=== PATIENT | male | born 1960 | race Caucasian/White ===

== ENCOUNTER 2021-06-08 19:36 | Inpatient (IN) | payer OTHER, MEDICAID, SELFPAY ==
[2021-06-08] VITALS (18 sets, daily range): BP systolic 105–140; BP diastolic 70–95; PULSE 83–104; RESP 7–30; TEMP 31–36; O2SAT 90–99
--- NOTE | 2021-06-08 19:41 | DI.CT.S_ITS ---
PROCEDURE: CT HEAD/BRAIN WO CON INDICATIONS: altered mental status TECHNIQUE: Noncontrast 4.5 mm thick angled axial sections acquired from the foramen magnum to the vertex, with coronal and sagittal reformats. For radiation dose reduction, the following was used: automated exposure control, adjustment of mA and/or kV according to patient size. COMPARISON: None. FINDINGS: Image quality: Excellent. CSF spaces: Basal cisterns are patent. No extra-axial fluid collections. The ventricles are symmetric in size and shape. Brain: No intracranial bleeds or masses. There is cerebral volume loss for age, with resultant ventricular and sulcal prominence. There are periventricular and deep white matter chronic small vessel ischemic changes. There is intracranial internal carotid artery atherosclerosis. Skull and face: Calvarium and visualized facial bones appear intact, without suspicious lesions. Sinuses: Visualized sinuses and mastoids are clear. IMPRESSION: 1. No CT evidence of acute intracranial pathology. 2. Age-appropriate atrophy and mild white matter chronic small vessel ischemic changes. Dictated by: Isaac Crouch M.D. on 06/08/2021 at 20:38 Approved by: Isaac Crouch M.D. on 06/08/2021 at 20:39
--- NOTE | 2021-06-08 19:42 | DI.RAD.S_ITS ---
PROCEDURE: XR CHEST 1V INDICATIONS: dyspnea TECHNIQUE: One view of the chest was acquired. COMPARISON: [facility], , CHEST 2 VIEW, 03/31/2013, 20:00. FINDINGS: Surgical changes and devices: None. Lungs and pleura: There is suggestion of mild pulmonary edema and pulmonary vascular congestion. Underlying small scattered patchy infiltrates cannot be excluded. No pleural effusions or pneumothorax. Mediastinum: Mediastinal contours appear normal. Heart size is enlarged. Bones and chest wall: No suspicious bony lesions. Overlying soft tissues appear unremarkable. IMPRESSION: Cardiomegaly and pulmonary vascular congestion with pulmonary edema. Cannot rule out underlying scattered bilateral pulmonary infiltrates. No pleural effusion or pneumothorax. Dictated by: Isaac Crouch M.D. on 06/08/2021 at 20:49 Approved by: Isaac Crouch M.D. on 06/08/2021 at 20:49
[2021-06-08 20:09] LABS: Add Manual Diff / Slide Review NO; Basophils Absolute Auto 0 /uL (0-100); Basophils Percent Auto 0.1 % (0-2); Eosinophils Absolute Auto 0 /uL (0-450); Hematocrit 53.3 % (41-53); Lymphocytes Absolute Auto 300 /uL (1100-4500); Lymphocytes Percent Auto 2.8 % (25-40); Mean Corpuscular Hemoglobin 29.2 PG (26-34); Mean Corpuscular Volume 91.3 fL (80-100); Monocytes Absolute Auto 1800 /uL (0-900); Monocytes Percent Auto 15.3 % (3-14); Neutrophils Absolute Auto 9800 /uL (1500-7000); Neutrophils Percent Auto 81.8 % (50-75); Platelet Count 211 X10^3/uL (150-400); Red Blood Cell Count 5.84 X10^6/uL (4.5-5.9)
[2021-06-08] MEDS: SODIUM CHLORIDE 0.9% 1,000 ML 150 ML IV (20:13)
[2021-06-08] MEDS: methylPREDNISolone 125 MG/2 ML VIAL IV (20:14)
[2021-06-08 20:21] LABS: HCO3 VBG 36 mmol/L (23-28); Oxygen Saturation VBG 48 % (70-75); PCO2 VBG 113.3 mmHg (45-50); PO2 VBG 37 mmHg (35-45); Total CO2 VBG 40 mmol/L (24-29); pH VBG 7.11 (7.33-7.43)
[2021-06-08 20:28] LABS: Alanine Aminotransferase 646 IU/L (<50); Albumin 4.2 g/dL (3.5-5.0); Albumin Globulin Ratio 1.4 (1.0-2.8); Alkaline Phosphatase 84 U/L (38-126); Aspartate Aminotransferase 591 IU/L (17-59); BUN Creatinine Ratio 20.5 (6-22); Bilirubin Total 3.2 mg/dL (0.2-1.3); Blood Urea Nitrogen 45 mg/dL (9-20); Calcium 8.5 mg/dL (8.4-10.2); Carbon Dioxide 38 mmol/L (22-32); Chloride 90 mmol/L (98-107); Estimated Glomerular Filt Rate 30.7 mL/min (>60); Glucose 147 mg/dL (80-110); Lipase 136 U/L (23-300); Magnesium 2.5 mg/dL (1.6-2.3); Sodium 137 mmol/L (137-145); Total Protein 7.2 g/dL (6.3-8.2)
[2021-06-08 20:30] LABS: HEMOLYSIS < 15 (0-50); Potassium 6.2 mmol/L (3.4-5.1)
--- NOTE | 2021-06-08 20:31 | ED_ITS ---
HPI - General Adult General Chief complaint: Altered Mental Status Stated complaint: decreased LOC Time Seen by Provider: 06/08/21 19:40 Source: patient, family and EMS Mode of arrival: EMS History of Present Illness HPI narrative: Gentleman brought in by medics with respiratory distress. Apparently his significant other called medics because she was worried that his hands and his feet or purple. On arrival they found him to be significantly hypoxic with shallow breathing. He was given a mg of Narcan and seem to improve slightly. He will respond to direct questions but is clearly altered. There is no localizing neurologic symptoms otherwise. He and his girlfriend both deny alcohol use or recreational drugs. It is unclear how long he has been having respiratory issues. Related Data Home Medications Medication Instructions Recorded Confirmed No Known Home Medications 11/29/18 11/29/18 Allergies Allergy/AdvReac Type Severity Reaction Status Date / Time No Known Allergies Allergy Uncoded 11/29/18 13:42 Review of Systems Review of Systems ROS Unobtainable: Unobtainable due to medical condition Patient History Medical History Chicken pox (~1964) Fractures (~1993) Hearing loss Measles (~1965) Mumps (~1967) Vision disorder Surgical History Anesthesia Broken nose (~1981) History of hernia surgery (~1964) Social History Smoking Status: Current every day smoker Tobacco: How many years used: 50 quit status: not considering quitting second hand exposure: No alcohol intake: current (once or twice a year, maybe) substance use type: marijuana (once in awhile) Smoking Status: Current every day smoker Exam Narrative Exam Narrative: General: Significantly altered mental status. Can answer questions directly but requires deep sternal rub to do so. He is aware that he is in hospital HEENT: Moist mucous membranes, normal sclera with reactive pupils, 3 mm. Neck: supple, unable to evaluate JVD due to body habitus and coto Respiratory: Lungs with shallow air movement, scattered wheeze, basilar c rackles and rhonchi with popping in the right posterior lung field Cardiac: Tachycardic but otherwise Regular rate and rhythm no murmurs no bruits Abdomen: Soft, no pain behaviors elicited with deep palpation, good bowel tones, no flank pain Skin: Overall poorly perfused. Hands are chronically swollen as can be seen with chronic IV drug use and methamphetamine use. Poor overall perfusion Neurologic: Moving all extremities, can answer some specific direct questions but clearly altered Extremities: No trauma, 4+ lower extremity edema bilaterally, feet are cool to the touch Psych: Altered Initial Vital Signs Initial Vital Signs: Vital Signs Temperature 96.8 F L 06/08/21 19:40 Pulse Rate 104 H 06/08/21 19:40 Respiratory Rate 21 06/08/21 19:40 Blood Pressure 133/79 06/08/21 19:40 Pulse Oximetry 94 06/08/21 19:40 Course Course Course Narrative: 61-year-old gentleman with minimal medical history brought in with altered mental status and decreased respiratory effort. Medics noted a significant response with the initial mg of Narcan. Initial venous blood gas reveals a pH of 7.1 and CO2 of 113. The hypercarbia certainly explains the altered mental status. On clinical exam strong suspicion for narcotic as well as methamphetamine use. Possibility of significant congestive heart failure with concern for cardiomyopathy possibly methamphetamine induced. No evidence o f acute coronary syndrome or STEMI on initial presentation. Possibility of acute on chronic narcotic overdose with hypoventilation and hypercarbic respiratory failure. Blood pressure initially is stable and he is minimally tachycardic. He is afebrile and there is no clinical evidence of infection at this time. I do not think that this is sepsis however that clearly remains in the differential. Most likely explanation is congestive heart failure with hypercarbic respiratory failure and possibility of narcotic overdose to exacerbate all of his symptoms. He started on BiPAP, labs are continued. At this point without signs or symptoms of infection antibiotics are not started. If volume overload seems to beef very clear and will not start IV fluids. He is oxygenating well on 50% O2 on BiPAP at this time. After an hour on BiPAP his CO2 is come down to 84 in his pH is increased to 7. 24. He received 2 mg of Haldol to help with agitation and we replaced his small mask with full face mask and he at this point is tolerating the BiPAP much better. Repeat chemistries showed a potassium increasing from 6.2-6.5. Initial interventions had been Lasix, insulin and glucose. An additional 80 mg of Lasix as well as an amp of bicarb were given. With both of these potassium levels there are no EKG changes Regarding renal function, with BiPAP in place and diuresis started a creatinine is already trending down from 2.19 to 1.97. Lactic acid similar it is trending down with diuresis ProBNP is elevated and he clearly is in significant congestive heart failure AST and ALT are trending up however bilirubin level is trending down. Phone calls are made to [facility], probably [place] and [facility]. We have talked with coordinating transfer center for [facility] and no ICU beds are going to be available this evening. Talked with Dr. Burk and he will be admitted to our hospital for continued care. 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 No evidence of acute coronary syndrome at this time He is tolerating BiPAP and CO2 is improving Possible accidental heroin overdose contributing to hypoventilation and complications of all the above He is in critical condition and will be transferred to the ICU Orders Ordered: ED Orders 06/08/21 19:41 CT head/brain wo con Stat 06/08/21 19:42 XR chest 1V Stat EKG-12 Lead Stat 06/08/21 20:00 COVID19 - ADMIT (CODING QUALITY ANALYST swab/PCR) Stat Complete Blood Count AUTO DIFF Stat Comprehensive Metabolic Panel Stat D Dimer Stat Lactate (Lactic Acid) Stat Lipase Stat Magnesium Stat NT-proBNP (BNP-Adult 18+) Stat Thyroid Stimulating Hormone Stat Troponin I Stat 06/08/21 20:02 Venous Blood Gas Stat 06/08/21 20:11 BiPAP Ventilatory Support RT PROTOCOL 06/08/21 20:56 Blood Culture Stat 06/08/21 21:03 Ictotest Urine Stat Urinalysis and Microscopic Stat Urine Drug Screen, Rapid Stat 06/08/21 22:00 Comprehensive Metabolic Panel Stat Venous Blood Gas Stat Sodium Chloride (Normal Saline 0.9%) 1,000 mls @ 150 mls/hr IV CONT RYLAND Last Infusion: 06/08/21 21:07 Dose: 21 mls/hr Documented by: Admin: 06/08/21 20:13 Dose: 150 mls/hr Documented by: YOLA Discontinued Medications Dextrose (Dextrose 50 % In Water 25 Gm/50 Ml Syringe) 25 gm IV NOW ONE Stop: 06/08/21 20:49 Last Admin: 06/08/21 20:56 Dose: 25 gm Documented by: YOLA Furosemide (Furosemide 100 Mg/10 Ml Vial) 80 mg IV NOW ONE Stop: 06/08/21 20:49 Last Admin: 06/08/21 20:54 Dose: 80 mg Documented by: YOLA Furosemide (Furosemide 100 Mg/10 Ml Vial) 80 mg IV NOW ONE Stop: 06/08/21 22:37 Last Admin: 06/08/21 22:39 Dose: 80 mg Documented by: YOLA Haloperidol (Haloperidol 5 Mg/Ml Vial) 2 mg IV NOW ONE Stop: 06/08/21 22:12 Last Admin: 06/08/21 22:13 Dose: 2 mg Documented by: YOLA Insulin Human Regular (Insulin Regular 100 Unit/Ml 3 Ml Vial) 10 unit IV NOW ONE Stop: 06/08/21 20:49 Last Admin: 06/08/21 20:59 Dose: 10 unit Documented by: YOLA Cosigned by: HUMAIRA Methylprednisolone (Methylprednisolone 125 Mg/2 Ml Vial) 125 mg IV NOW ONE Stop: 06/08/21 19:58 Last Admin: 06/08/21 20:14 Dose: 125 mg Documented by: YOLA Naloxone HCl (Naloxone 1 Mg/Ml Syringe) 1 mg IV NOW ONE Stop: 06/08/21 20:41 Last Admin: 06/08/21 20:41 Dose: 1 mg Documented by: YOLA Nitroglycerin (Nitroglycerin Oint 1 Inch/Gm Oint...G.) 0.5 inch TOP NOW ONE Stop: 06/08/21 20:54 Last Admin: 06/08/21 21:11 Dose: 0.5 inch Documented by: YOLA Sodium Bicarbonate (Sodium Bicarb 8.4% Syringe) 50 meq IV NOW ONE Stop: 06/08/21 22:39 Last Admin: 06/08/21 22:47 Dose: 50 meq Documented by: YOLA Vital Signs Vital signs: Vital Signs - 8 hr 06/08/21 19:40 06/08/21 20:01 06/08/21 20:06 Temperature 96.8 F L Pulse Rate 104 H 104 H 104 H Respiratory Rate 21 7 L 21 Blood Pressure 133/79 133/79 Pulse Oximetry 94 93 90 L 06/08/21 20:30 06/08/21 20:52 06/08/21 21:00 Temperature Pulse Rate 103 H 96 H 92 H Respiratory Rate 13 23 26 H Blood Pressure 110/77 114/70 Pulse Oximetry 95 94 92 06/08/21 21:11 06/08/21 21:30 06/08/21 21:31 Temperature Pulse Rate 89 88 Respiratory Rate 28 H 29 H Blood Pressure 114/70 140/89 Pulse Oximetry 99 99 06/08/21 21:57 06/08/21 22:00 06/08/21 22:30 Temperature Pulse Rate 88 86 84 Respiratory Rate 26 H 26 H 29 H Blood Pressure 127/84 136/85 Pulse Oximetry 91 91 94 06/08/21 22:31 06/08/21 22:39 Temperature Pulse Rate 85 Respiratory Rate 24 Blood Pressure 115/95 H 115/95 H Pulse Oximetry 94 Medical Decision Making Lab Data Result diagrams: 06/08/21 20:00 06/08/21 22:00 Labs: Lab Results 06/08/21 06/08/21 06/08/21 Range/Units 20:00 20:00 20:00 WBC 12.0 H (4.5-11.0) X10^3/uL RBC 5.84 (4.5-5.9) X10^6/uL Hgb 17.0 (13.5-17.5) g/dL Hct 53.3 H (41-53) % MCV 91.3 (80-100) fL MCH 29.2 (26-34) PG MCHC 32.0 (30-36) % RDW 15.0 H (11.6-14.8) % Plt Count 211 (150-400) X10^3/uL Neut % (Auto) 81.8 H (50-75) % Lymph % (Auto) 2.8 L (25-40) % [place] % (Auto) 15.3 H (3-14) % Eos % (Auto) 0.0 L (2-4) % Baso % (Auto) 0.1 (0-2) % Neut # (Auto) 9800 H (8325-6951) /uL Lymph # (Auto) 300 L (9602-5761) /uL [place] # (Auto) 1800 H (0-900) /uL Eos # (Auto) 0 (0-450) /uL Baso # (Auto) 0 (0-100) /uL D-Dimer 918 H (<230) ng/mL VBG pH (7.33-7.43) VBG pCO2 (45-50) mmHg VBG pO2 (35-45) mmHg VBG HCO3 (23-28) mmol/L VBG Total CO2 (24-29) mmol/L VBG O2 Saturation (70-75) % VBG Base Excess (0-4) mmol/L Sodium 137 (137-145) mmol/L Potassium 6.2 H (3.4-5.1) mmol/L Chloride 90 L (98-107) mmol/L Carbon Dioxide 38 H (22-32) mmol/L BUN 45 H (9-20) mg/dL Creatinine 2.19 H (0.66-1.25) mg/dL Estimated GFR 30.7 L (>60) mL/min BUN/Creatinine Ratio 20.5 (6-22) Glucose 147 H (80-110) mg/dL Lactate (0.7-2.1) mmol/L Calcium 8.5 (8.4-10.2) mg/dL Magnesium 2.5 H (1.6-2.3) mg/dL Total Bilirubin 3.2 H (0.2-1.3) mg/dL AST 591 H (17-59) IU/L ALT 646 H (<50) IU/L Alkaline Phosphatase 84 (38-126) U/L Troponin I 0.419 H* (0.01-0.034) ng/mL NT-Pro-B Natriuret Pep 6250 H (<125) pg/mL Total Protein 7.2 (6.3-8.2) g/dL Albumin 4.2 (3.5-5.0) g/dL Globulin 3.0 (1.7-4.1) g/dL Albumin/Globulin Ratio 1.4 (1.0-2.8) Lipase 136 (23-300) U/L TSH (0.47-4.68) uIU/mL Urine Color Urine Appearance Urine pH (4.5-8.0) Ur Specific [place] (1.000-1.035) Urine Protein (Negative) Urine Glucose (UA) (Negative) g/dL Urine Ketones (NEGATIVE) Urine Occult Blood (Negative) Urine Nitrate (Negative) Urine Bilirubin (NEGATIVE) Ur Bilirubin Confirm (Negative) Urine Urobilinogen (0.2) E.U./dL Ur Leukocyte Esterase (NEGATIVE) Urine RBC (0-5/HPF) Urine WBC (0-5/HPF) Ur Squamous Epith Cells (0-5/HPF) Ur Transition Epith Cell (0-5/HPF) Urine Bacteria (None) Hyaline Casts (None) Urine Mucus (Negative) Ur Culture Indicated? U Opiates 300ng/mL cut (Negative) Ur Oxycodone Screen (Negative) Urine Methadone Screen (Negative) Ur Barbiturates Screen (Negative) U Tricyclic Antidepress (Negative) Ur Phencyclidine Scrn (Negative) Ur Amphetamines Screen (Negative) U Methamphetamines Scrn (Negative) Ur MDMA Scrn (Ecstasy) (Negative) U Benzodiazepines Scrn (Negative) Urine Cocaine Screen (Negative) U Marijuana (THC) Screen (Negative) SARS-CoV-2 (PCR) (Negative) 06/08/21 06/08/21 06/08/21 Range/Units 20:00 20:00 20:00 WBC (4.5-11.0) X10^3/uL RBC (4.5-5.9) X10^6/uL Hgb (13.5-17.5) g/dL Hct (41-53) % MCV (80-100) fL MCH (26-34) PG MCHC (30-36) % RDW (11.6-14.8) % Plt Count (150-400) X10^3/uL Neut % (Auto) (50-75) % Lymph % (Auto) (25-40) % [place] % (Auto) (3-14) % Eos % (Auto) (2-4) % Baso % (Auto) (0-2) % Neut # (Auto) (1284-3823) /uL Lymph # (Auto) (9542-6310) /uL [place] # (Auto) (0-900) /uL Eos # (Auto) (0-450) /uL Baso # (Auto) (0-100) /uL D-Dimer (<230) ng/mL VBG pH (7.33-7.43) VBG pCO2 (45-50) mmHg VBG pO2 (35-45) mmHg VBG HCO3 (23-28) mmol/L VBG Total CO2 (24-29) mmol/L VBG O2 Saturation (70-75) % VBG Base Excess (0-4) mmol/L Sodium (137-145) mmol/L Potassium (3.4-5.1) mmol/L Chloride (98-107) mmol/L Carbon Dioxide (22-32) mmol/L BUN (9-20) mg/dL Creatinine (0.66-1.25) mg/dL Estimated GFR (>60) mL/min BUN/Creatinine Ratio (6-22) Glucose (80-110) mg/dL Lactate 4.7 H* (0.7-2.1) mmol/L Calcium (8.4-10.2) mg/dL Magnesium (1.6-2.3) mg/dL Total Bilirubin (0.2-1.3) mg/dL AST (17-59) IU/L ALT (<50) IU/L Alkaline Phosphatase (38-126) U/L Troponin I (0.01-0.034) ng/mL NT-Pro-B Natriuret Pep (<125) pg/mL Total Protein (6.3-8.2) g/dL Albumin (3.5-5.0) g/dL Globulin (1.7-4.1) g/dL Albumin/Globulin Ratio (1.0-2.8) Lipase (23-300) U/L TSH 1.70 (0.47-4.68) uIU/mL Urine Color Urine Appearance Urine pH (4.5-8.0) Ur Specific [place] (1.000-1.035) Urine Protein (Negative) Urine Glucose (UA) (Negative) g/dL Urine Ketones (NEGATIVE) Urine Occult Blood (Negative) Urine Nitrate (Negative) Urine Bilirubin (NEGATIVE) Ur Bilirubin Confirm (Negative) Urine Urobilinogen (0.2) E.U./dL Ur Leukocyte Esterase (NEGATIVE) Urine RBC (0-5/HPF) Urine WBC (0-5/HPF) Ur Squamous Epith Cells (0-5/HPF) Ur Transition Epith Cell (0-5/HPF) Urine Bacteria (None) Hyaline Casts (None) Urine Mucus (Negative) Ur Culture Indicated? U Opiates 300ng/mL cut (Negative) Ur Oxycodone Screen (Negative) Urine Methadone Screen (Negative) Ur Barbiturates Screen (Negative) U Tricyclic Antidepress (Negative) Ur Phencyclidine Scrn (Negative) Ur Amphetamines Screen (Negative) U Methamphetamines Scrn (Negative) Ur MDMA Scrn (Ecstasy) (Negative) U Benzodiazepines Scrn (Negative) Urine Cocaine Screen (Negative) U Marijuana (THC) Screen (Negative) SARS-CoV-2 (PCR) Negative (Negative) 06/08/21 06/08/21 06/08/21 Range/Units 20:02 21:03 21:03 WBC (4.5-11.0) X10^3/uL RBC (4.5-5.9) X10^6/uL Hgb (13.5-17.5) g/dL Hct (41-53) % MCV (80-100) fL MCH (26-34) PG MCHC (30-36) % RDW (11.6-14.8) % Plt Count (150-400) X10^3/uL Neut % (Auto) (50-75) % Lymph % (Auto) (25-40) % [place] % (Auto) (3-14) % Eos % (Auto) (2-4) % Baso % (Auto) (0-2) % Neut # (Auto) (4649-0246) /uL Lymph # (Auto) (0531-4956) /uL [place] # (Auto) (0-900) /uL Eos # (Auto) (0-450) /uL Baso # (Auto) (0-100) /uL D-Dimer (<230) ng/mL VBG pH 7.11 L* (7.33-7.43) VBG pCO2 113.3 H (45-50) mmHg VBG pO2 37 (35-45) mmHg VBG HCO3 36 H (23-28) mmol/L VBG Total CO2 40 H (24-29) mmol/L VBG O2 Saturation 48 L (70-75) % VBG Base Excess 7.0 H (0-4) mmol/L Sodium (137-145) mmol/L Potassium (3.4-5.1) mmol/L Chloride (98-107) mmol/L Carbon Dioxide (22-32) mmol/L BUN (9-20) mg/dL Creatinine (0.66-1.25) mg/dL Estimated GFR (>60) mL/min BUN/Creatinine Ratio (6-22) Glucose (80-110) mg/dL Lactate (0.7-2.1) mmol/L Calcium (8.4-10.2) mg/dL Magnesium (1.6-2.3) mg/dL Total Bilirubin (0.2-1.3) mg/dL AST (17-59) IU/L ALT (<50) IU/L Alkaline Phosphatase (38-126) U/L Troponin I (0.01-0.034) ng/mL NT-Pro-B Natriuret Pep (<125) pg/mL Total Protein (6.3-8.2) g/dL Albumin (3.5-5.0) g/dL Globulin (1.7-4.1) g/dL Albumin/Globulin Ratio (1.0-2.8) Lipase (23-300) U/L TSH (0.47-4.68) uIU/mL Urine Color Yellow Urine Appearance Clear Urine pH 5.0 (4.5-8.0) Ur Specific [place] >=1.030 H (1.000-1.035) Urine Protein 2+ H (Negative) Urine Glucose (UA) Trace H (Negative) g/dL Urine Ketones Trace H (NEGATIVE) Urine Occult Blood Trace-lysed (Negative) Urine Nitrate Negative (Negative) Urine Bilirubin 1+ H (NEGATIVE) Ur Bilirubin Confirm Negative (Negative) Urine Urobilinogen 1.0 (0.2) E.U./dL Ur Leukocyte Esterase Negative (NEGATIVE) Urine RBC 0-1/hpf (0-5/HPF) Urine WBC 0-1/hpf (0-5/HPF) Ur Squamous Epith Cells 0-1 /hpf (0-5/HPF) Ur Transition Epith Cell 0-1/hpf (0-5/HPF) Urine Bacteria Occasional (0-1) (None) Hyaline Casts 30-100/lpf (None) Urine Mucus 1+ H (Negative) Ur Culture Indicated? Cult not indicated U Opiates 300ng/mL cut Positive H (Negative) Ur Oxycodone Screen Negative (Negative) Urine Methadone Screen Negative (Negative) Ur Barbiturates Screen Negative (Negative) U Tricyclic Antidepress Negative (Negative) Ur Phencyclidine Scrn Negative (Negative) Ur Amphetamines Screen Negative (Negative) U Methamphetamines Scrn Positive H (Negative) Ur MDMA Scrn (Ecstasy) Negative (Negative) U Benzodiazepines Scrn Negative (Negative) Urine Cocaine Screen Negative (Negative) U Marijuana (THC) Screen Negative (Negative) SARS-CoV-2 (PCR) (Negative) 06/08/21 06/08/21 06/08/21 Range/Units 22:00 22:00 22:20 WBC (4.5-11.0) X10^3/uL RBC (4.5-5.9) X10^6/uL Hgb (13.5-17.5) g/dL Hct (41-53) % MCV (80-100) fL MCH (26-34) PG MCHC (30-36) % RDW (11.6-14.8) % Plt Count (150-400) X10^3/uL Neut % (Auto) (50-75) % Lymph % (Auto) (25-40) % [place] % (Auto) (3-14) % Eos % (Auto) (2-4) % Baso % (Auto) (0-2) % Neut # (Auto) (4678-5982) /uL Lymph # (Auto) (2939-0536) /uL [place] # (Auto) (0-900) /uL Eos # (Auto) (0-450) /uL Baso # (Auto) (0-100) /uL D-Dimer (<230) ng/mL VBG pH 7.24 L (7.33-7.43) VBG pCO2 84.2 H (45-50) mmHg VBG pO2 38 (35-45) mmHg VBG HCO3 36 H (23-28) mmol/L VBG Total CO2 39 H (24-29) mmol/L VBG O2 Saturation 60 L (70-75) % VBG Base Excess 9.0 H (0-4) mmol/L Sodium 135 L (137-145) mmol/L Potassium 6.5 H* (3.4-5.1) mmol/L Chloride 92 L (98-107) mmol/L Carbon Dioxide 37 H (22-32) mmol/L BUN 47 H (9-20) mg/dL Creatinine 1.97 H (0.66-1.25) mg/dL Estimated GFR 34.7 L (>60) mL/min BUN/Creatinine Ratio 23.9 H (6-22) Glucose 205 H (80-110) mg/dL Lactate 4.0 H (0.7-2.1) mmol/L Calcium 8.0 L (8.4-10.2) mg/dL Magnesium (1.6-2.3) mg/dL Total Bilirubin 2.4 H (0.2-1.3) mg/dL AST 1344 H (17-59) IU/L ALT 1411 H (<50) IU/L Alkaline Phosphatase 65 (38-126) U/L Troponin I (0.01-0.034) ng/mL NT-Pro-B Natriuret Pep (<125) pg/mL Total Protein 6.3 (6.3-8.2) g/dL Albumin 3.5 (3.5-5.0) g/dL Globulin 2.8 (1.7-4.1) g/dL Albumin/Globulin Ratio 1.3 (1.0-2.8) Lipase (23-300) U/L TSH (0.47-4.68) uIU/mL Urine Color Urine Appearance Urine pH (4.5-8.0) Ur Specific [place] (1.000-1.035) Urine Protein (Negative) Urine Glucose (UA) (Negative) g/dL Urine Ketones (NEGATIVE) Urine Occult Blood (Negative) Urine Nitrate (Negative) Urine Bilirubin (NEGATIVE) Ur Bilirubin Confirm (Negative) Urine Urobilinogen (0.2) E.U./dL Ur Leukocyte Esterase (NEGATIVE) Urine RBC (0-5/HPF) Urine WBC (0-5/HPF) Ur Squamous Epith Cells (0-5/HPF) Ur Transition Epith Cell (0-5/HPF) Urine Bacteria (None) Hyaline Casts (None) Urine Mucus (Negative) Ur Culture Indicated? U Opiates 300ng/mL cut (Negative) Ur Oxycodone Screen (Negative) Urine Methadone Screen (Negative) Ur Barbiturates Screen (Negative) U Tricyclic Antidepress (Negative) Ur Phencyclidine Scrn (Negative) Ur Amphetamines Screen (Negative) U Methamphetamines Scrn (Negative) Ur MDMA Scrn (Ecstasy) (Negative) U Benzodiazepines Scrn (Negative) Urine Cocaine Screen (Negative) U Marijuana (THC) Screen (Negative) SARS-CoV-2 (PCR) (Negative) Imaging Data CT scan - head: Radiologist's Impression: FINDINGS: Image quality: Excellent. CSF spaces: Basal cisterns are patent. No extra-axial fluid collections. The ventricles are symmetric in size and shape. Brain: No intracranial bleeds or masses. There is cerebral volume loss for age, with resultant ventricular and sulcal prominence. There are periventricular and deep white matter chronic small vessel ischemic changes. There is intracranial internal carotid artery atherosclerosis. Skull and face: Calvarium and visualized facial bones appear intact, without suspicious lesions. Sinuses: Visualized sinuses and mastoids are clear. IMPRESSION: 1. No CT evidence of acute intracranial pathology. 2. Age-appropriate atrophy and mild white matter chronic small vessel ischemic changes. Dictated by: Isaac Crouch M.D. on 06/08/2021 at 20:38 Chest x-ray: Radiologist's Impression: FINDINGS: Surgical changes and devices: None. Lungs and pleura: There is suggestion of mild pulmonary edema and pulmonary vascular congestion. Underlying small scattered patchy infiltrates cannot be excluded. No pleural effusions or pneumothorax. Mediastinum: Mediastinal contours appear normal. Heart size is enlarged. Bones and chest wall: No suspicious bony lesions. Overlying soft tissues appear unremarkable. IMPRESSION: Cardiomegaly and pulmonary vascular congestion with pulmonary edema. Cannot rule out underlying scattered bilateral pulmonary infiltrates. No pleural effusion or pneumothorax. Dictated by: Isaac Crouch M.D. on 06/08/2021 at 20:49 ECG Data Interpretation: Sinus tach Rate of 101 normal intervals, significant rightward axis No acute ischemic changes MDM Narrative Medical decision making narrative: Labs are returning of note is a lactate level at 4.7 that again I think is from Cardiac hypoperfusion and respiratory insufficiency rather than infection. Acute kidney injury with creatinine at 2.19 and potassium elevated at 6.2 without peaked T-waves or widened QRS. Will treat the potassium with glucose and insulin. Will also add Lasix for the presumed significant congestive heart failure Elevated total bili AST and ALT likely secondary to passive liver congestion from severe congestive heart failure. Alkaline phosphatase is 84. Do not s uspect acute cholecystitis or common bile duct stone or other obstructive etiology at this time Elevated troponin at this point with his acute kidney injury, concern for cardiomyopathy and no evidence of ST T wave changes on his EKG, I think the probability of acute coronary syndrome is less likely. Will re-evaluate after diuresis and an hour of BiPAP. Will place topical nitrates at this time. 8:50pm he did have a slight response after another mg of Narcan, was able to speak in full sentences and assist with repositioning in bed. Critical Care Time Critical Care Time Critical Care Time: Yes Total Critical Care Time: 47 Attestation: Critical care time is separate from other billable procedures. There is a high probability of a significant, sudden or life-threatening deterioration that requires my full and direct attention, intervention and personal management. This critical care time includes consultation with family and other consulting doctors, review of records, and interpretation of data from labs, EKGs and imaging as well as managements of acute neurologic changes, respiratory failure, cardiac failure, renal failure, liver failure and severe congestive heart disease. Discharge Plan Departure Prescriptions: No Action No Known Home Medications RF: 0 Referrals: Vi Esquivel ARNP [Primary Care Provider] - Admit Date/Time: 06/08/21 23:33
[2021-06-08 20:34] LABS: Lactate (Lactic Acid) 4.7 mmol/L (0.7-2.1)
[2021-06-08 20:41] LABS: NT-proBNP (BNP-Adult 18+) 6250 pg/mL (<125)
[2021-06-08] MEDS: NALOXONE 1 MG/ML SYRINGE IV (20:41)
[2021-06-08 20:45] LABS: D Dimer 918 ng/mL (<230); Troponin I 0.419 ng/mL (0.01-0.034)
[2021-06-08] MEDS: FUROSEMIDE 100 MG/10 ML VIAL 80 MG IV ×2 (20:54→22:39)
[2021-06-08] MEDS: DEXTROSE 50 % IN WATER 25 GM/50 ML SYRINGE IV (20:56)
[2021-06-08] MEDS: INSULIN REGULAR 100 UNIT/ML 3 ML VIAL 10 UNIT IV (20:59)
[2021-06-08] MEDS: NITROGLYCERIN OINT 1 INCH/GM OINT...G. 0.5 INCH TOP (21:11)
[2021-06-08 21:14] LABS: Appearance Urine UA CLEAR; Bilirubin Urine UA 1+ (NEGATIVE); Color Urine UA YELLOW; Glucose Urine UA TRACE g/dL (Negative); Ketones Urine UA TRACE (NEGATIVE); Leukocyte Esterase Urine UA NEGATIVE (NEGATIVE); Nitrite Urine UA NEGATIVE (Negative); Occult Blood Urine UA TRACE-LYSED (Negative); Protein Urine UA 2+ (Negative); Specific Gravity Urine UA >=1.030 (1.000-1.035)
[2021-06-08 21:25] LABS: Bacteria Urine Occasional (0-1); Culture Indicated Urine Cult Not Indicated; Hyaline Casts Urine 30-100/LPF; Ictotest Urine Negative (Negative); RBC Urine 0-1/HPF (0-5/HPF); Squamous Epithelial Cell Urine 0-1 /HPF (0-5/HPF); Transitional Epi Cells Urine 0-1/HPF (0-5/HPF); WBC Urine 0-1/HPF (0-5/HPF)
[2021-06-08 21:26] LABS: Mucus Urine 1+ (Negative)
[2021-06-08 21:37] LABS: UR Morphine/Opiate cutoff 300 Positive (Negative); Ur Creatinine 200 (Normal); Urine Amphetamines Negative (Negative); Urine Barbiturates Negative (Negative); Urine Benzodiazepines Negative (Negative); Urine Cocaine Negative (Negative); Urine MDMA Negative (Negative); Urine Methadone Negative (Negative); Urine Methamphetamines Positive (Negative); Urine Oxycodone Negative (Negative); Urine Phencyclidine Negative (Negative); Urine Tetrahydrocannabinol Negative (Negative); Urine Tricyclic Antidepressant Negative (Negative); Urine pH 5 (Normal)
[2021-06-08 22:05] LABS: Reflexed Lactate in 2 Hours Y
[2021-06-08] MEDS: HALOPERIDOL 5 MG/ML VIAL 2 MG IV (22:13)
[2021-06-08 22:17] LABS: Albumin 3.5 g/dL (3.5-5.0); Albumin Globulin Ratio 1.3 (1.0-2.8); Alkaline Phosphatase 65 U/L (38-126); BUN Creatinine Ratio 23.9 (6-22); Bilirubin Total 2.4 mg/dL (0.2-1.3); Blood Urea Nitrogen 47 mg/dL (9-20); Carbon Dioxide 37 mmol/L (22-32); Chloride 92 mmol/L (98-107); Estimated Glomerular Filt Rate 34.7 mL/min (>60); Globulin 2.8 g/dL (1.7-4.1); Glucose 205 mg/dL (80-110); HEMOLYSIS 47 (0-50); Sodium 135 mmol/L (137-145); Total Protein 6.3 g/dL (6.3-8.2)
[2021-06-08 22:22] LABS: HCO3 VBG 36 mmol/L (23-28); PCO2 VBG 84.2 mmHg (45-50); PO2 VBG 38 mmHg (35-45); Total CO2 VBG 39 mmol/L (24-29)
[2021-06-08 22:23] LABS: Oxygen Saturation VBG 60 % (70-75); Potassium 6.5 mmol/L (3.4-5.1); pH VBG 7.24 (7.33-7.43)
[2021-06-08 22:36] LABS: COVID19 - ADMIT (NP swab/PCR) Negative (Negative)
[2021-06-08 22:46] LABS: Alanine Aminotransferase 1411 IU/L (<50); Aspartate Aminotransferase 1344 IU/L (17-59)
[2021-06-08] MEDS: SODIUM BICARB 8.4% SYRINGE 50 MEQ IV (22:47)
[2021-06-09] VITALS (98 sets, daily range): BP systolic 85–127; BP diastolic 55–94; PULSE 62–120; RESP 14–36; TEMP 30.8–37.2; O2SAT 88–97; BMI 34.2
--- NOTE | 2021-06-09 | DI.ECHO.S_ITS ---
[facility] +---------+ : : [address] : : : : [id number] : : : : Phone: [phone]+ Echocardiogram Report + + :Name: DIRK MOORE Study Date: 06/09/2021 Height: 74 in : :[facility] ReadingLocation: : : Gender: Male : :: 1960 Age: 61 yrs BP: 94/64 mmHg: :Reason For Study: EVALUATE LV FUNCTION : :Ordering Physician: JONATHAN, : :YASHIRA Performed By: Geno Azul : :Referring: YASHIRA CASTILLO : + + Interpretation Summary Images taken out of protocol due to patient detox and becoming increasingly agitated by scanning. Definity was not used due to patient increasingly becoming agitated by scanning. The left ventricle is normal in size. There is mild concentric left ventricular hypertrophy. Left ventricular ejection fraction is estimated to be 25 +/- 5%. There is severe global hypokinesis of the left ventricle. Mid to distal posterior lateral wall appears to be akinetic. The interventricular septum is flattened, consistent with a right ventricular pressure overload condition. The right ventricle is mildly dilated. Right ventricular systolic function is mild to moderately reduced. There is mild tricuspid regurgitation. Pulmonary artery pressures cannot be estimated because of the lack of a measurable TR jet velocity. The aortic root is moderately dilated. The ascending aorta is mild-moderately enlarged. Patient on bi-pap, IVC dilated without collapse. In short axis, aortic valve opens well. Cannot rule out bicuspid aortic valve. Procedure: A two-dimensional transthoracic echocardiogram with color flow and Doppler was performed. The study quality was technically difficult. There is no prior echocardiogram noted for this patient. The heart rate ranged between 61-81 bpm during the study. The patient had occasional PVCs during the exam. The patient was in normal sinus rhythm during the exam. The patient had a bundle branch block rhythm during the exam. Left Ventricle: The estimated left ventricular end diastolic volume is 122 ml. The left ventricle is normal in size. There is mild concentric left ventricular hypertrophy. There is no thrombus. A false chord is noted (normal variant). Left ventricular ejection fraction is estimated to be 25 +/- 5%. There is severe global hypokinesis of the left ventricle. Mid to distal posterior lateral wall appears to be akinetic. The interventricular septum is flattened, consistent with a right ventricular pressure overload condition. Diastolic parameters suggest a relaxation abnormality of the left ventricle, consistent with probable normal filling pressures. Right Ventricle: The right ventricle is mildly dilated. Right ventricular systolic function is mild to moderately reduced. Atria: The left atrium is moderately dilated. The right atrium is moderately dilated. There is no Doppler evidence for an interatrial shunt. Mitral Valve: The mitral valve leaflets appear mildly thickened, but open well. There is mild mitral annular calcification. There is mild mitral regurgitation. Aortic Valve: The aortic valve opens well. In short axis, aortic valve opens well. Cannot rule out bicuspid aortic valve. There is no aortic valve stenosis. No aortic regurgitation is present. Tricuspid Valve: The tricuspid valve is not well visualized, but is grossly normal. There is mild tricuspid regurgitation. Pulmonary artery pressures cannot be estimated because of the lack of a measurable TR jet velocity. Pulmonic Valve: The pulmonic valve is not well visualized. There is no pulmonic valvular regurgitation. Great Vessels: The aortic root is moderately dilated. The ascending aorta is mild-moderately enlarged. Patient on bi-pap, IVC dilated without collapse. Pericardium/ Pleura There is no pericardial effusion. There is no pleural effusion. MMode/2D Measurements & Calculations LVIDd: 5.5 cm LVOT diam: 2.4 cm LVIDs: 4.5 cm Ao root diam: 5.0 cm FS: 17.5 % asc Aorta Diam: 4.0 cm EPSS: 2.2 cm IVSd: 1.2 cm LVPWd: 1.1 cm LA A2 area: 30.2 cm2 RA long axis: 6.7 cm LA A4 area: 22.6 cm2 RA area: 25.0 cm2 LA length (vol): 6.5 cm RA vol: 79.9 ml LA vol: 89.9 ml IVC diam: 3.2 cm RVD1 (basal): 4.2 cm TAPSE: 2.0 cm Doppler Measurements & Calculations Ao V2 max: 104.2 cm/sec LVOT Max Pollo: 101.7 cm/sec Ao V2 mean: 71.4 cm/sec LV V1 max P.1 mmHg Ao max P.3 mmHg LV V1 VTI: 17.4 cm Ao mean P.3 mmHg RUTH(I,D): 3.8 cm2 Ao V2 VTI: 20.7 cm RUTH(V,D): 4.4 cm2 sev ratio: 0.84 MV E max pollo: 38.8 cm/sec TR max pollo: 202.3 cm/sec MV A max pollo: 66.8 cm/sec TR max P.4 mmHg MV E/A: 0.58 PA V2 max: 65.1 cm/sec Med Peak E' Pollo: 4.8 cm/sec PA V2 mean: 42.1 cm/sec E/E' med: 8.0 PA mean P.84 mmHg Lat Peak E' Pollo: 3.7 cm/sec PA pr(Accel): 22.5 mmHg E/E' lat: 10.4 E/e' average: 9.2 MV dec time: 0.32 sec SV(LVOT): 78.6 ml Reading Physician:12:11 PM
--- NOTE | 2021-06-09 00:50 | DI.RAD.S_ITS ---
PROCEDURE: XR CHEST 1V INDICATIONS: check placement of central line TECHNIQUE: One view of the chest was acquired. COMPARISON: [facility], CR, XR CHEST 1V, 06/08/2021, 19:38. FINDINGS: Surgical changes and devices: Interval placement of right central venous catheter with distal tip projecting over the mid SVC. Lungs and pleura: Diffuse interstitial prominence as before. Improved lung aeration. No focal consolidations. Suggestion of mild bronchovascular congestion. No pneumothorax. Right costophrenic angle has been excluded. Suspected small left pleural effusion. Mediastinum: Mediastinal contours appear stable. Heart size is enlarged. Bones and chest wall: No suspicious bony lesions. Overlying soft tissues appear unremarkable. IMPRESSION: Right central venous catheter with distal tip projecting over the mid SVC. No pneumothorax. Persistent findings of suspected pulmonary edema/CHF. Concurrent infection not excluded if clinically appropriate. Dictated by: Jules Barth M.D. on 06/09/2021 at 7:16 Approved by: Jules Barth M.D. on 06/09/2021 at 7:19
[2021-06-09] MEDS: HALOPERIDOL 5 MG/ML VIAL 2 MG IV (01:09)
[2021-06-09] MEDS: DEXMEDETOMIDINE HCL 400 MCG in SODIUM CHLORIDE 0.9% 96 ML 6.292 ML IV ×2 (01:26→01:54)
--- NOTE | 2021-06-09 01:38 | PM.HP.1 ---
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 Per report from the emergency department his significant other called the medics because she was worried that his hands and feet were purple. On arrival they found him significantly hypoxic with shallow breathing. He was given 1 mg of Narcan and seemed to improve. Patient was altered when he arrived. There was no localizing neurological symptoms. Further history was unobtainable as the patient was unable to provide any history. In the emergency room the patient was found to be in hypercapnic respiratory failure. His initial ABG revealed a pH is 7.1, with a pCO2 of 113. The patient also had a UA which was positive for opiates and methamphetamines. Patient was tachycardic with stable blood pressure on admission. Patient was placed on BiPAP. Repeat ABG showed a pH improved to 7.24. He was also given Haldol for agitation. There was some difficulty with finding the appropriate face mask for BiPAP. He was also found to be hyperkalemic with a potassium of 6.2. Patient was given Lasix insulin and glucose and his repeat potassium was 6.5. Patient also noted to be in renal failure. His creatinine most recently in 2019 was 0.7. On admission it was 2.9. Patient had markedly elevated liver function tests with an AST of 1344 and an ALT of 14 11, in addition his troponin was elevated at 0.419. The emergency department attempted to transfer the patient to an outside hospital. They contacted [facility] in [facility]. In addition they spoke to the coordinating transfer center at [facility] and there were no ICU beds available. As such the patient was admitted to the hospital for inpatient treatment. Patient remains agitated. He was given 2 mg of Haldol. He will be started on Precedex drip. Patient is EN route to the intensive care unit at this time. For the laboratory studies reveal a proBNP elevated at 62 50. Chest x-ray shows pulmonary vascular engorgement. Patient will continue diuresis for presumed congestive heart failure. Patient History Medical History Chicken pox (~1964) Fractures (~1993) Hearing loss Measles (~1965) Mumps (~1967) Vision disorder Surgical History Anesthesia Broken nose (~1981) History of hernia surgery (~1964) Family & Social History Family history unavailable: Yes Social History: Patient is unresponsive, agitated, and now sedated. He is unable to provide any social or family history. Tobacco & Substance use: Smoking Status Current every day smoker alcohol intake current Meds Home Medications and Allergies Home Medications Medication Instructions Recorded Confirmed Type No Known Home Medications 11/29/18 11/29/18 History Allergies Allergy/AdvReac Type Severity Reaction Status Date / Time No Known Allergies Allergy Uncoded 11/29/18 13:42 Review of Systems Review of Systems Narrative: Unobtainable due to mental status Exam Vital Signs (past 8 hours): - 06/08/21 19:40 06/08/21 20:01 06/08/21 20:06 Temperature 96.8 F L Pulse Rate 104 H 104 H 104 H Respiratory Rate 21 7 L 21 Blood Pressure 133/79 133/79 Pulse Oximetry 94 93 90 L 06/08/21 20:30 06/08/21 20:52 06/08/21 21:00 Temperature Pulse Rate 103 H 96 H 92 H Respiratory Rate 13 23 26 H Blood Pressure 110/77 114/70 Pulse Oximetry 95 94 92 06/08/21 21:11 06/08/21 21:30 06/08/21 21:31 Temperature Pulse Rate 89 88 Respiratory Rate 28 H 29 H Blood Pressure 114/70 140/89 Pulse Oximetry 99 99 06/08/21 21:57 06/08/21 22:00 06/08/21 22:30 Temperature Pulse Rate 88 86 84 Respiratory Rate 26 H 26 H 29 H Blood Pressure 127/84 136/85 Pulse Oximetry 91 91 94 06/08/21 22:31 06/08/21 22:39 06/09/21 00:24 Temperature Pulse Rate 85 Respiratory Rate 24 Blood Pressure 115/95 H 115/95 H 113/77 Pulse Oximetry 94 Fraction of Inspired Oxygen 50 Oxygen Delivery Method Non -Rebreather Oxygen Flow Rate 10 Narrative Exam Narrative: Obese agitated ill-appearing male HENVA Other: HEENT: Normocephalic atraumatic, oropharynx reveals dry mucous membranes, BiPAP mask in place Eyes Other: Eyes closed no exudate Neck Other: Neck is supple Resp Other: Lungs decreased breath sounds with scattered crackles bilaterally Cardio Other: Cardiac exam: Regular rate and rhythm normal S1-S2, positive S3 GI Other: Abdomen: Soft nontender nondistended Skin Other: Multiple macular eruptions on the abdomen and lower extremities Neuro Other: Patient is agitated and uncooperative, he is able to move all extremities Extrem Other: Patient has 3+ pitting edema bilaterally of the lower extremities, Objective ECG Impression: Sinus rhythm, no acute ST T wave abnormalities Labs Result Diagrams: 06/08/21 20:00 06/08/21 22:00 Labs: Laboratory Results - last 24 hr 06/08/21 06/08/21 06/08/21 20:00 20:00 20:00 WBC 12.0 H RBC 5.84 Hgb 17.0 Hct 53.3 H MCV 91.3 MCH 29.2 MCHC 32.0 RDW 15.0 H Plt Count 211 Neut % (Auto) 81.8 H Lymph % (Auto) 2.8 L [place] % (Auto) 15.3 H Eos % (Auto) 0.0 L Baso % (Auto) 0.1 Neut # (Auto) 9800 H Lymph # (Auto) 300 L [place] # (Auto) 1800 H Eos # (Auto) 0 Baso # (Auto) 0 D-Dimer 918 H VBG pH VBG pCO2 VBG pO2 VBG HCO3 VBG Total CO2 VBG O2 Saturation VBG Base Excess Sodium 137 Potassium 6.2 H Chloride 90 L Carbon Dioxide 38 H BUN 45 H Creatinine 2.19 H Estimated GFR 30.7 L BUN/Creatinine Ratio 20.5 Glucose 147 H Lactate Calcium 8.5 Magnesium 2.5 H Total Bilirubin 3.2 H AST 591 H ALT 646 H Alkaline Phosphatase 84 Troponin I 0.419 H* NT-Pro-B Natriuret Pep 6250 H Total Protein 7.2 Albumin 4.2 Globulin 3.0 Albumin/Globulin Ratio 1.4 Lipase 136 TSH Urine Color Urine Appearance Urine pH Ur Specific [place] Urine Protein Urine Glucose (UA) Urine Ketones Urine Occult Blood Urine Nitrate Urine Bilirubin Ur Bilirubin Confirm Urine Urobilinogen Ur Leukocyte Esterase Urine RBC Urine WBC Ur Squamous Epith Cells Ur Transition Epith Cell Urine Bacteria Hyaline Casts Urine Mucus Ur Culture Indicated? U Opiates 300ng/mL cut Ur Oxycodone Screen Urine Methadone Screen Ur Barbiturates Screen U Tricyclic Antidepress Ur Phencyclidine Scrn Ur Amphetamines Screen U Methamphetamines Scrn Ur MDMA Scrn (Ecstasy) U Benzodiazepines Scrn Urine Cocaine Screen U Marijuana (THC) Screen SARS-CoV-2 (PCR) 06/08/21 06/08/21 06/08/21 20:00 20:00 20:00 WBC RBC Hgb Hct MCV MCH MCHC RDW Plt Count Neut % (Auto) Lymph % (Auto) [place] % (Auto) Eos % (Auto) Baso % (Auto) Neut # (Auto) Lymph # (Auto) [place] # (Auto) Eos # (Auto) Baso # (Auto) D-Dimer VBG pH VBG pCO2 VBG pO2 VBG HCO3 VBG Total CO2 VBG O2 Saturation VBG Base Excess Sodium Potassium Chloride Carbon Dioxide BUN Creatinine Estimated GFR BUN/Creatinine Ratio Glucose Lactate 4.7 H* Calcium Magnesium Total Bilirubin AST ALT Alkaline Phosphatase Troponin I NT-Pro-B Natriuret Pep Total Protein Albumin Globulin Albumin/Globulin Ratio Lipase TSH 1.70 Urine Color Urine Appearance Urine pH Ur Specific [place] Urine Protein Urine Glucose (UA) Urine Ketones Urine Occult Blood Urine Nitrate Urine Bilirubin Ur Bilirubin Confirm Urine Urobilinogen Ur Leukocyte Esterase Urine RBC Urine WBC Ur Squamous Epith Cells Ur Transition Epith Cell Urine Bacteria Hyaline Casts Urine Mucus Ur Culture Indicated? U Opiates 300ng/mL cut Ur Oxycodone Screen Urine Methadone Screen Ur Barbiturates Screen U Tricyclic Antidepress Ur Phencyclidine Scrn Ur Amphetamines Screen U Methamphetamines Scrn Ur MDMA Scrn (Ecstasy) U Benzodiazepines Scrn Urine Cocaine Screen U Marijuana (THC) Screen SARS-CoV-2 (PCR) Negative 06/08/21 06/08/21 06/08/21 20:02 21:03 21:03 WBC RBC Hgb Hct MCV MCH MCHC RDW Plt Count Neut % (Auto) Lymph % (Auto) [place] % (Auto) Eos % (Auto) Baso % (Auto) Neut # (Auto) Lymph # (Auto) [place] # (Auto) Eos # (Auto) Baso # (Auto) D-Dimer VBG pH 7.11 L* VBG pCO2 113.3 H VBG pO2 37 VBG HCO3 36 H VBG Total CO2 40 H VBG O2 Saturation 48 L VBG Base Excess 7.0 H Sodium Potassium Chloride Carbon Dioxide BUN Creatinine Estimated GFR BUN/Creatinine Ratio Glucose Lactate Calcium Magnesium Total Bilirubin AST ALT Alkaline Phosphatase Troponin I NT-Pro-B Natriuret Pep Total Protein Albumin Globulin Albumin/Globulin Ratio Lipase TSH Urine Color Yellow Urine Appearance Clear Urine pH 5.0 Ur Specific [place] >=1.030 H Urine Protein 2+ H Urine Glucose (UA) Trace H Urine Ketones Trace H Urine Occult Blood Trace-lysed Urine Nitrate Negative Urine Bilirubin 1+ H Ur Bilirubin Confirm Negative Urine Urobilinogen 1.0 Ur Leukocyte Esterase Negative Urine RBC 0-1/hpf Urine WBC 0-1/hpf Ur Squamous Epith Cells 0-1 /hpf Ur Transition Epith Cell 0-1/hpf Urine Bacteria Occasional (0-1) Hyaline Casts 30-100/lpf Urine Mucus 1+ H Ur Culture Indicated? Cult not indicated U Opiates 300ng/mL cut Positive H Ur Oxycodone Screen Negative Urine Methadone Screen Negative Ur Barbiturates Screen Negative U Tricyclic Antidepress Negative Ur Phencyclidine Scrn Negative Ur Amphetamines Screen Negative U Methamphetamines Scrn Positive H Ur MDMA Scrn (Ecstasy) Negative U Benzodiazepines Scrn Negative Urine Cocaine Screen Negative U Marijuana (THC) Screen Negative SARS-CoV-2 (PCR) 06/08/21 06/08/21 06/08/21 22:00 22:00 22:20 WBC RBC Hgb Hct MCV MCH MCHC RDW Plt Count Neut % (Auto) Lymph % (Auto) [place] % (Auto) Eos % (Auto) Baso % (Auto) Neut # (Auto) Lymph # (Auto) [place] # (Auto) Eos # (Auto) Baso # (Auto) D-Dimer VBG pH 7.24 L VBG pCO2 84.2 H VBG pO2 38 VBG HCO3 36 H VBG Total CO2 39 H VBG O2 Saturation 60 L VBG Base Excess 9.0 H Sodium 135 L Potassium 6.5 H* Chloride 92 L Carbon Dioxide 37 H BUN 47 H Creatinine 1.97 H Estimated GFR 34.7 L BUN/Creatinine Ratio 23.9 H Glucose 205 H Lactate 4.0 H Calcium 8.0 L Magnesium Total Bilirubin 2.4 H AST 1344 H ALT 1411 H Alkaline Phosphatase 65 Troponin I NT-Pro-B Natriuret Pep Total Protein 6.3 Albumin 3.5 Globulin 2.8 Albumin/Globulin Ratio 1.3 Lipase TSH Urine Color Urine Appearance Urine pH Ur Specific [place] Urine Protein Urine Glucose (UA) Urine Ketones Urine Occult Blood Urine Nitrate Urine Bilirubin Ur Bilirubin Confirm Urine Urobilinogen Ur Leukocyte Esterase Urine RBC Urine WBC Ur Squamous Epith Cells Ur Transition Epith Cell Urine Bacteria Hyaline Casts Urine Mucus Ur Culture Indicated? U Opiates 300ng/mL cut Ur Oxycodone Screen Urine Methadone Screen Ur Barbiturates Screen U Tricyclic Antidepress Ur Phencyclidine Scrn Ur Amphetamines Screen U Methamphetamines Scrn Ur MDMA Scrn (Ecstasy) U Benzodiazepines Scrn Urine Cocaine Screen U Marijuana (THC) Screen SARS-CoV-2 (PCR) Assessment & Plan Assessment & Plan narrative: Impression 1. 61-year-old male admitted to the hospital with acute hypercapnic hypoxic respiratory failure, etiology unclear. Based on UA which reveals positive opiates and amphetamines suspect probable inadvertent opioid overdose versus acute pulmonary edema -the patient did receive 1 mg of Narcan, this was repeated again, with no significant improvement in his mental state respiratory status -patient is also found to be in [place] congestive heart failure with elevated troponins likely contributing to his hypercapnic respiratory failure -patient has been placed on BiPAP, which he is minimally tolerating, he remains agitated, and will be sedated with Precedex and as needed Haldol -his hypercapnia has improved, will repeat ABG again -no evidence to suggest pneumonia -suspect acute pulmonary edema likely contributing -patient to continue IV diuretics, Lasix 80 mg every 8 hours, repeat ABG, continue BiPAP, as well as sedation -if the patient develops progressive hypercapnia he may require intubation 2. Probable type 2 myocardial infarction versus demand ischemia, verses methamphetamine induced cardiomyopathy -patient is unable to provide any history at this time, EKG does not show significant ST T wave abnormality -however the patient with a markedly elevated troponin of 0.419, this may represent type 2 myocardial infarction versus demand ischemia as the patient is unable to provide any history it is unclear -will continue to trend troponins, will also obtain 2D echo to evaluate LV function, will start baby aspirin, no heparin at this time -patient developed an 8 beat run of V-tach will continue to monitor closely 3. Probable acute pulmonary edema likely secondary to congestive heart failure related to his probable acute ischemic event related to methamphetamine -patient with significant anasarca -continue IV Lasix 80 mg IV q.8 -trend troponin, echo as above -proBNP 6250 4. Acute renal failure, likely related to acute respiratory failure -patient has made significant improvement with urine output since diuresis -creatinine improved from 2.19 down to 1.97 -he remains hyperkalemic, despite Lasix, bicarb, glucose, and insulin -will repeat electrolytes, and treat accordingly -most recent renal function revealed creatinine of 0.70 in 2019 5. Elevated LFTs -AST 1344, ALT 14 11 -suspect shock liver related to his primary respiratory event -will obtain abdominal ultrasound to rule out the possibility of intrahepatic etiology 6. Elevated lactate -initial lactate 4.7, repeat lactate 4.0 -no evidence of hypotension or bacterial infection 7. Acute metabolic encephalopathy -likely multifactorial secondary to hypercapnia and acute pulmonary edema -may be related to underlying polysubstance abuse -head CT in the emergency room revealed no evidence of acute intracranial abnormality Patient is critically ill, 60 minutes of critical Ill to time is obtained patient is unable to provide any history, and therefore surrogate is on obtain Patient will be made a full code, he is admitted to the intensive care unit as an inpatient Medications have not been reviewed and verified as the patient is unable to provide any information This patient remains critically ill will continue to monitor and manage as described above Time Spent With Patient Critical Care time: I spent a total of [] minutes of critical care time on this patient's care today; this time is exclusive of procedural time.
[2021-06-09] MEDS: HEPARIN 5,000 UNIT/ML VIAL 5000 UNIT SUBCUT ×2 (02:07→07:38)
--- NOTE | 2021-06-09 02:35 | P.TELICUCN_ITS ---
History of Present Illness Consult details Date Patient Seen: 06/09/21 Chief complaint: decreased LOC Requesting provider: Jaimee Burk :: This patient was seen via real time interactive two-way audiovisual telecommunication. Narrative: 61 yo obese male presenting w ALOC (somnolence). He was given narcan in the field due to concern for opiate overdose which caused pt to have inc agitation. In ED, ABG was obtained which revealed acute hypercapnic resp failure. He was placed on BiPAP. Clinically pt is grossly volume overloaded with sig pitting LE edema. He has lab evidence pointing to congestive hepatopathy due to markedly elevated transaminases. His UTox is positive for meth and opiates. He has GARRET with a Creat of 2 and K 6.5. He was medically managed for his hyperkalemia. He was given some haldol for agitation and transferred to the ICU on BiPAP and precedex. On camera pt is sleeping and tolerating BiPAP well. Serial blood gasses reveal improvement in hypercapnia with BiPAP use. He was given lasix (80mg x2) in the ED. He has had about 300cc Uop with that. Case was d/w Dr Burk as well as the bedside nurse when pt arrived to ICU. [facility] Medical History Chicken pox (~1964) Fractures (~1993) Hearing loss Measles (~1965) Mumps (~1967) Vision disorder Surgical History Anesthesia Broken nose (~1981) History of hernia surgery (~1964) Social History Smoking Status: Current every day smoker Tobacco: How many years used: 50 quit status: not considering quitting second hand exposure: No alcohol intake: current substance use type: marijuana (once in awhile) Current Medications Current Medications Medications: Home Medications No Known Home Medications 11/29/18 [History Confirmed 11/29/18] Visit Medications (administered) Generic Name Dose Route Start Last Admin Trade Name Freq PRN Reason Stop Dose Admin Heparin Sodium (Porcine) 5,000 unit 06/09/21 01:30 06/09/21 02:07 Heparin 5,000 Unit/Ml Vial SUBCUT 5,000 unit BID [place] Administration Sodium Chloride 1,000 mls @ 150 mls/hr 06/08/21 19:45 06/09/21 01:56 Normal Saline 0.9% IV 21 mls/hr CONT [place] Infusion Dexmedetomidine HCl 400 mcg/ 96 mls @ 6.292 mls/hr 06/09/21 01:32 06/09/21 01:54 Sodium Chloride IV 06/10/21 23:59 0.2 mcg/kg/hr TITRATE [place] 6.292 mls/hr Administration Protocol 0.2 MCG/KG/HR Exam Vital Signs (past 8 hours): - 06/08/21 19:40 06/08/21 20:01 06/08/21 20:06 Temperature 96.8 F L Pulse Rate 104 H 104 H 104 H Respiratory Rate 21 7 L 21 Blood Pressure 133/79 133/79 Pulse Oximetry 94 93 90 L 06/08/21 20:30 06/08/21 20:52 06/08/21 21:00 Temperature Pulse Rate 103 H 96 H 92 H Respiratory Rate 13 23 26 H Blood Pressure 110/77 114/70 Pulse Oximetry 95 94 92 06/08/21 21:11 06/08/21 21:30 06/08/21 21:31 Temperature Pulse Rate 89 88 Respiratory Rate 28 H 29 H Blood Pressure 114/70 140/89 Pulse Oximetry 99 99 06/08/21 21:57 06/08/21 22:00 06/08/21 22:30 Temperature Pulse Rate 88 86 84 Respiratory Rate 26 H 26 H 29 H Blood Pressure 127/84 136/85 Pulse Oximetry 91 91 94 06/08/21 22:31 06/08/21 22:39 06/08/21 23:00 Temperature Pulse Rate 85 84 Respiratory Rate 24 25 H Blood Pressure 115/95 H 115/95 H Pulse Oximetry 94 91 06/08/21 23:01 06/08/21 23:30 06/09/21 00:00 Temperature Pulse Rate 84 83 80 Respiratory Rate 23 21 22 Blood Pressure 105/70 107/72 Pulse Oximetry 91 91 91 06/09/21 00:01 06/09/21 00:24 06/09/21 00:30 Temperature Pulse Rate 80 82 Respiratory Rate 20 28 H Blood Pressure 113/77 113/77 Pulse Oximetry 91 97 06/09/21 01:00 06/09/21 01:01 06/09/21 01:30 Temperature Pulse Rate 85 90 85 Respiratory Rate 31 H 36 H 23 Blood Pressure 102/76 Pulse Oximetry 93 94 93 06/09/21 01:35 Temperature 98.7 F Pulse Rate 89 Respiratory Rate 25 H Blood Pressure 127/86 Pulse Oximetry 96 Fraction of Inspired Oxygen 50 Oxygen Delivery Method Non -Rebreather Oxygen Flow Rate 10 Objective Labs Result Diagrams: 06/08/21 20:00 06/08/21 22:00 Labs: Laboratory Results - last 24 hr 06/08/21 06/08/21 06/08/21 20:00 20:00 20:00 WBC 12.0 H RBC 5.84 Hgb 17.0 Hct 53.3 H MCV 91.3 MCH 29.2 MCHC 32.0 RDW 15.0 H Plt Count 211 Neut % (Auto) 81.8 H Lymph % (Auto) 2.8 L Phelps % (Auto) 15.3 H Eos % (Auto) 0.0 L Baso % (Auto) 0.1 Neut # (Auto) 9800 H Lymph # (Auto) 300 L Phelps # (Auto) 1800 H Eos # (Auto) 0 Baso # (Auto) 0 D-Dimer 918 H VBG pH VBG pCO2 VBG pO2 VBG HCO3 VBG Total CO2 VBG O2 Saturation VBG Base Excess Sodium 137 Potassium 6.2 H Chloride 90 L Carbon Dioxide 38 H BUN 45 H Creatinine 2.19 H Estimated GFR 30.7 L BUN/Creatinine Ratio 20.5 Glucose 147 H Lactate Calcium 8.5 Magnesium 2.5 H Total Bilirubin 3.2 H AST 591 H ALT 646 H Alkaline Phosphatase 84 Troponin I 0.419 H* NT-Pro-B Natriuret Pep 6250 H Total Protein 7.2 Albumin 4.2 Globulin 3.0 Albumin/Globulin Ratio 1.4 Lipase 136 TSH Urine Color Urine Appearance Urine pH Ur Specific [place] Urine Protein Urine Glucose (UA) Urine Ketones Urine Occult Blood Urine Nitrate Urine Bilirubin Ur Bilirubin Confirm Urine Urobilinogen Ur Leukocyte Esterase Urine RBC Urine WBC Ur Squamous Epith Cells Ur Transition Epith Cell Urine Bacteria Hyaline Casts Urine Mucus Ur Culture Indicated? U Opiates 300ng/mL cut Ur Oxycodone Screen Urine Methadone Screen Ur Barbiturates Screen U Tricyclic Antidepress Ur Phencyclidine Scrn Ur Amphetamines Screen U Methamphetamines Scrn Ur MDMA Scrn (Ecstasy) U Benzodiazepines Scrn Urine Cocaine Screen U Marijuana (THC) Screen SARS-CoV-2 (PCR) 06/08/21 06/08/21 06/08/21 20:00 20:00 20:00 WBC RBC Hgb Hct MCV MCH MCHC RDW Plt Count Neut % (Auto) Lymph % (Auto) [place]ps % (Auto) Eos % (Auto) Baso % (Auto) Neut # (Auto) Lymph # (Auto) Phelps # (Auto) Eos # (Auto) Baso # (Auto) D-Dimer VBG pH VBG pCO2 VBG pO2 VBG HCO3 VBG Total CO2 VBG O2 Saturation VBG Base Excess Sodium Potassium Chloride Carbon Dioxide BUN Creatinine Estimated GFR BUN/Creatinine Ratio Glucose Lactate 4.7 H* Calcium Magnesium Total Bilirubin AST ALT Alkaline Phosphatase Troponin I NT-Pro-B Natriuret Pep Total Protein Albumin Globulin Albumin/Globulin Ratio Lipase TSH 1.70 Urine Color Urine Appearance Urine pH Ur Specific [place] Urine Protein Urine Glucose (UA) Urine Ketones Urine Occult Blood Urine Nitrate Urine Bilirubin Ur Bilirubin Confirm Urine Urobilinogen Ur Leukocyte Esterase Urine RBC Urine WBC Ur Squamous Epith Cells Ur Transition Epith Cell Urine Bacteria Hyaline Casts Urine Mucus Ur Culture Indicated? U Opiates 300ng/mL cut Ur Oxycodone Screen Urine Methadone Screen Ur Barbiturates Screen U Tricyclic Antidepress Ur Phencyclidine Scrn Ur Amphetamines Screen U Methamphetamines Scrn Ur MDMA Scrn (Ecstasy) U Benzodiazepines Scrn Urine Cocaine Screen U Marijuana (THC) Screen SARS-CoV-2 (PCR) Negative 06/08/21 06/08/21 06/08/21 20:02 21:03 21:03 WBC RBC Hgb Hct MCV MCH MCHC RDW Plt Count Neut % (Auto) Lymph % (Auto) Phelps % (Auto) Eos % (Auto) Baso % (Auto) Neut # (Auto) Lymph # (Auto) Phelps # (Auto) Eos # (Auto) Baso # (Auto) D-Dimer VBG pH 7.11 L* VBG pCO2 113.3 H VBG pO2 37 VBG HCO3 36 H VBG Total CO2 40 H VBG O2 Saturation 48 L VBG Base Excess 7.0 H Sodium Potassium Chloride Carbon Dioxide BUN Creatinine Estimated GFR BUN/Creatinine Ratio Glucose Lactate Calcium Magnesium Total Bilirubin AST ALT Alkaline Phosphatase Troponin I NT-Pro-B Natriuret Pep Total Protein Albumin Globulin Albumin/Globulin Ratio Lipase TSH Urine Color Yellow Urine Appearance Clear Urine pH 5.0 Ur Specific [place] >=1.030 H Urine Protein 2+ H Urine Glucose (UA) Trace H Urine Ketones Trace H Urine Occult Blood Trace-lysed Urine Nitrate Negative Urine Bilirubin 1+ H Ur Bilirubin Confirm Negative Urine Urobilinogen 1.0 Ur Leukocyte Esterase Negative Urine RBC 0-1/hpf Urine WBC 0-1/hpf Ur Squamous Epith Cells 0-1 /hpf Ur Transition Epith Cell 0-1/hpf Urine Bacteria Occasional (0-1) Hyaline Casts 30-100/lpf Urine Mucus 1+ H Ur Culture Indicated? Cult not indicated U Opiates 300ng/mL cut Positive H Ur Oxycodone Screen Negative Urine Methadone Screen Negative Ur Barbiturates Screen Negative U Tricyclic Antidepress Negative Ur Phencyclidine Scrn Negative Ur Amphetamines Screen Negative U Methamphetamines Scrn Positive H Ur MDMA Scrn (Ecstasy) Negative U Benzodiazepines Scrn Negative Urine Cocaine Screen Negative U Marijuana (THC) Screen Negative SARS-CoV-2 (PCR) 06/08/21 06/08/21 06/08/21 22:00 22:00 22:20 WBC RBC Hgb Hct MCV MCH MCHC RDW Plt Count Neut % (Auto) Lymph % (Auto) Phelps % (Auto) Eos % (Auto) Baso % (Auto) Neut # (Auto) Lymph # (Auto) Phelps # (Auto) Eos # (Auto) Baso # (Auto) D-Dimer VBG pH 7.24 L VBG pCO2 84.2 H VBG pO2 38 VBG HCO3 36 H VBG Total CO2 39 H VBG O2 Saturation 60 L VBG Base Excess 9.0 H Sodium 135 L Potassium 6.5 H* Chloride 92 L Carbon Dioxide 37 H BUN 47 H Creatinine 1.97 H Estimated GFR 34.7 L BUN/Creatinine Ratio 23.9 H Glucose 205 H Lactate 4.0 H Calcium 8.0 L Magnesium Total Bilirubin 2.4 H AST 1344 H ALT 1411 H Alkaline Phosphatase 65 Troponin I NT-Pro-B Natriuret Pep Total Protein 6.3 Albumin 3.5 Globulin 2.8 Albumin/Globulin Ratio 1.3 Lipase TSH Urine Color Urine Appearance Urine pH Ur Specific [place] Urine Protein Urine Glucose (UA) Urine Ketones Urine Occult Blood Urine Nitrate Urine Bilirubin Ur Bilirubin Confirm Urine Urobilinogen Ur Leukocyte Esterase Urine RBC Urine WBC Ur Squamous Epith Cells Ur Transition Epith Cell Urine Bacteria Hyaline Casts Urine Mucus Ur Culture Indicated? U Opiates 300ng/mL cut Ur Oxycodone Screen Urine Methadone Screen Ur Barbiturates Screen U Tricyclic Antidepress Ur Phencyclidine Scrn Ur Amphetamines Screen U Methamphetamines Scrn Ur MDMA Scrn (Ecstasy) U Benzodiazepines Scrn Urine Cocaine Screen U Marijuana (THC) Screen SARS-CoV-2 (PCR) Assessment & Plan Assessment and plan (1) Acute hypercapnic respiratory failure: Status: Acute Plan: -Cont BiPAP. Pts ABGs are improving. Patient likely has some baseline hypercapnia given markedly elevate serum bicarb. Would wean IPAP 20 -> 15 -> 10. If tolerates that wean and clinically is awake and looks OK, can remove BiPAP. -Agree w DVT prophylaxis w SQ heparin, can inc to Q8h (2) Acute kidney injury: Status: Acute Plan: -Monitor renal function given need for aggressive diuresis -Monitor K and treat medically if needed -Avoid nephrotoxins (3) Acute CHF (congestive heart failure): Qualifiers: Heart failure type: unspecified Qualified Code(s): I50.9 - Heart failure, unspecified Status: Acute Plan: -Likely due to methamphetamine abuse. Check ECHO, probably has decreased systolic function -Agree with aggressive diuresis as long as BP and renal fucntion allow -Low dose levo if needed to aid diuresis as BP is soft and patient is on precedex. (4) Methamphetamine use: Status: Acute Plan: -Encourage abstinence. Likely cause of his hear failure. Probably causing a degree of pulm HTN as well (5) Acute hyperkalemia: Status: Acute Plan: Follow K/Renal function and treat medically as needed (6) Altered mental status: Qualifiers: Altered mental status type: stupor Qualified Code(s): R40.1 - Stupor Status: Acute Plan: -Multifactorial given meth and opiate abuse as well has patient sig hypercapnic resp failure. (7) Lactic acidosis: Status: Acute Plan: -Likely due to resp distress. Trending down, would check again tomorrow to make sure its clearing out. I doubt it is due to an infectious etiology. COVID-19 COVID-19 status: Negative Result date/Date tested (Pos, Neg/Pending): 06/08/21 Time Spent With Patient Critical Care time: I spent a total of 35 minutes of critical care time on this patient's care today; this time is exclusive of procedural time.
[2021-06-09 02:44] LABS: PCO2 ABG 58.6 mmHg (35-45); PO2 ABG 79 mmHg (80-100)
[2021-06-09 02:45] LABS: Fractionated Inspired Oxygen 50; HCO3 ABG 36 mmol/L (22-26); Oxygen Saturation ABG 95 % (95-100); TCO2 ABG 38 mmol/L (21-31)
[2021-06-09 02:54] LABS: BUN Creatinine Ratio 28.7 (6-22); Blood Urea Nitrogen 51 mg/dL (9-20); Calcium 8.4 mg/dL (8.4-10.2); Chloride 93 mmol/L (98-107); Creatine Kinase 43 U/L (55-170); Estimated Glomerular Filt Rate 39.1 mL/min (>60); Glucose 143 mg/dL (80-110); HEMOLYSIS 23 (0-50); Magnesium 2.2 mg/dL (1.6-2.3); Potassium 5.4 mmol/L (3.4-5.1); Sodium 135 mmol/L (137-145)
[2021-06-09 02:55] LABS: Lactate (Lactic Acid) 3.2 mmol/L (0.7-2.1)
[2021-06-09 03:10] LABS: Carbon Dioxide 40 mmol/L (22-32)
[2021-06-09] MEDS: NOREPINEPHRINE 4 MG in DEXTROSE 5% IN WATER 250 ML IV (03:25)
[2021-06-09 04:32] LABS: Reflexed Lactate in 2 Hours Y
[2021-06-09 04:56] LABS: Hematocrit 47.7 % (41-53); Hemoglobin 15.3 g/dL (13.5-17.5); Mean Corpuscular Hemoglobin 28.5 PG (26-34); Mean Corpuscular Volume 89.1 fL (80-100); Platelet Count 193 X10^3/uL (150-400); Red Blood Cell Count 5.36 X10^6/uL (4.5-5.9); Red Cell Distribution Width 14.7 % (11.6-14.8); White Blood Cell Count 12.5 X10^3/uL (4.5-11.0)
[2021-06-09 04:58] LABS: Add Manual Diff / Slide Review YES
[2021-06-09 05:02] LABS: Blood Urea Nitrogen 52 mg/dL (9-20); Calcium 8.5 mg/dL (8.4-10.2); Chloride 92 mmol/L (98-107); Estimated Glomerular Filt Rate 41.7 mL/min (>60); Glucose 131 mg/dL (80-110); HEMOLYSIS < 15 (0-50); Sodium 135 mmol/L (137-145)
[2021-06-09 05:03] LABS: Potassium 5.7 mmol/L (3.4-5.1)
[2021-06-09 05:08] LABS: Carbon Dioxide 38 mmol/L (22-32)
[2021-06-09] MEDS: FUROSEMIDE 100 MG/10 ML VIAL 80 MG IV ×3 (05:30→21:52)
[2021-06-09 06:48] LABS: Neutrophils Absolute Manual 11625 /uL (3000-5900); RBC Morphology Normal Morphology; Total Cells Counted 100
--- NOTE | 2021-06-09 07:27 | RT ---
pt tyron bipap well, no distress noted and bag mask unit at [facility]. Bipap plugged into red outlet
[2021-06-09] MEDS: HALOPERIDOL 5 MG/ML VIAL IV (07:38)
[2021-06-09] MEDS: FAMOTIDINE 20 MG/2 ML VIAL IV ×2 (09:25→20:43)
--- NOTE | 2021-06-09 09:37 | DI.US.S_ITS ---
PROCEDURE: US ABDOMEN COMPLETE INDICATIONS: ELEVATED LIVER FUNCTION TESTS TECHNIQUE: Real-time scanning was performed of the abdominal and retroperitoneal organs, with image documentation. COMPARISON: None. FINDINGS: Liver: The liver demonstrates diffusely increased echotexture without focal abnormalities consistent with chronic hepatocellular disease/hepatic steatosis. Gallbladder: There is borderline thickening of the gallbladder wall measuring approximately 3 mm in thickness. No pericholecystic fluid. No gallstones/sludge. Sonographic Abbott sign cannot be elicited as the patient is intubated. Biliary ducts: Intrahepatic bile ducts are non-dilated. Extrahepatic bile duct caliber measures 6 mm. Normal is 6-7 mm or less in diameter, or 10 mm or less post-cholecystectomy. Pancreas: Visualized portions of the pancreas are sonographically normal. Spleen: Spleen is normal in size and homogeneous in echotexture. Kidneys: Kidneys are normal in size and echotexture. Right kidney measures 10.6 cm long; left kidney is not well visualized secondary to technical difficulties given patient's inability to be repositioned or follow breathing instructions. No right-sided hydronephrosis or nephrolithiasis. No right-sided solid masses. Aorta: Visualized aorta is normal in caliber at less than 3 cm. Iliacs: Iliac arteries not well visualized. IVC: Intrahepatic inferior vena cava is patent. Miscellaneous: No free abdominal fluid. IMPRESSION: 1. Limited evaluation of the abdomen secondary to patient being intubated and not able to follow breathing instructions or repositioned. 2. The liver demonstrates diffusely increased echotexture without focal abnormalities consistent with chronic hepatocellular disease/hepatic steatosis. Findings may explain patient's elevated LFTs. 3. Borderline gallbladder wall thickening. No other sonographic findings for acute cholecystitis although a sonographic Abbott sign could not be elicited secondary to patient being intubated. Dictated by: Jules Barth M.D. on 06/09/2021 at 9:23 Approved by: Jules Barth M.D. on 06/09/2021 at 9:27
[2021-06-09 09:55] LABS: BUN Creatinine Ratio 36.4 (6-22); Blood Urea Nitrogen 56 mg/dL (9-20); Calcium 8.4 mg/dL (8.4-10.2); Chloride 91 mmol/L (98-107); Estimated Glomerular Filt Rate 46.2 mL/min (>60); Glucose 139 mg/dL (80-110); HEMOLYSIS < 15 (0-50); Potassium 5.3 mmol/L (3.4-5.1); Sodium 134 mmol/L (137-145)
[2021-06-09 10:03] LABS: Carbon Dioxide 40 mmol/L (22-32)
--- NOTE | 2021-06-09 10:03 | RT ---
Decreased pip to 15, pt tyron well.
--- NOTE | 2021-06-09 10:43 | DI.US.S_ITS ---
PROCEDURE: US VISCERAL DOPPLER LIMITED INDICATIONS: SEVERE TRANSAMINITIS TECHNIQUE: Real time scanning was performed of the aorta, celiac trunk, superior and inferior mesenteric arteries, with color and pulsed Doppler interrogation of the mesenteric vessels. COMPARISON: None. FINDINGS: The exam was technically limited due to motion and breathing. Limited evaluation demonstrates patency of the visualized portions of the main hepatic artery, portal vein, splenic vein, hepatic vein, and IVC. Portal vein waveform appears slightly pulsatile which can be seen with tricuspid regurgitation or right heart failure. IMPRESSION: 1. Limited study demonstrates patency of the main hepatic artery, portal vein, splenic vein, hepatic vein, and IVC. 2. Pulsatility of the portal venous waveform can be seen with tricuspid regurgitation or right heart failure. Dictated by: Schuyler Bowling M.D. on 06/09/2021 at 14:17 Approved by: Schuyler Bowling M.D. on 06/09/2021 at 14:20
[2021-06-09 10:56] LABS: Acetaminophen < 10 ug/mL (10-30)
[2021-06-09 11:08] LABS: Albumin 3.2 g/dL (3.5-5.0); Albumin Globulin Ratio 1.3 (1.0-2.8); Alkaline Phosphatase 67 U/L (38-126); Bilirubin Total 1.8 mg/dL (0.2-1.3); Bilirubin Unconjugated 1.5 mg/dL (0.0-1.1); Globulin 2.5 g/dL (1.7-4.1); Total Protein 5.7 g/dL (6.3-8.2)
[2021-06-09 11:14] LABS: HEMOLYSIS 15 (0-50)
[2021-06-09 11:15] LABS: Alanine Aminotransferase 1892 IU/L (<50)
[2021-06-09 11:16] LABS: Aspartate Aminotransferase 1328 IU/L (17-59)
[2021-06-09 11:28] LABS: Lactate Dehydrogenase 2661 U/L (313-618)
[2021-06-09] MEDS: DEXMEDETOMIDINE HCL 400 MCG in SODIUM CHLORIDE 0.9% 96 ML 5.496 ML IV (11:54)
[2021-06-09] MEDS: ASPIRIN EC 81 MG TABLET PO (11:58)
[2021-06-09] MEDS: ALBUTEROL/IPRATROPIUM 3 ML AMPUL INH (12:08)
--- NOTE | 2021-06-09 12:52 | PM.PN.1 ---
Subjective Subjective Date Patient Seen: 06/09/21 Time Patient Seen: 08:00 Interval history: Today he is more responsive. He is verbally responding with short answers to questions. He is still on BIPAP, still on precedex. He denies any chest pain. Exam Vital Signs (past 8 hours): - 06/09/21 05:00 06/09/21 05:15 06/09/21 05:30 Temperature Pulse Rate 78 77 76 Respiratory Rate 18 17 17 Blood Pressure 100/66 97/62 95/63 Pulse Oximetry 95 95 94 06/09/21 05:45 06/09/21 05:52 06/09/21 06:00 Temperature Pulse Rate 75 75 Respiratory Rate 18 18 Blood Pressure 99/64 99/64 98/67 Pulse Oximetry 94 95 06/09/21 06:15 06/09/21 06:30 06/09/21 06:45 Temperature Pulse Rate 73 74 71 Respiratory Rate 16 17 16 Blood Pressure 99/67 99/66 94/64 Pulse Oximetry 93 94 94 06/09/21 07:00 06/09/21 07:15 06/09/21 07:24 Temperature Pulse Rate 70 Respiratory Rate 17 Blood Pressure 92/61 109/74 109/74 Pulse Oximetry 94 06/09/21 07:31 06/09/21 07:46 06/09/21 08:00 Temperature Pulse Rate 73 73 Respiratory Rate 30 H 25 H 22 Blood Pressure 109/89 120/94 H 110/69 Pulse Oximetry 97 95 06/09/21 08:15 06/09/21 08:55 06/09/21 09:00 Temperature 97.0 F L Pulse Rate 69 69 70 Respiratory Rate 17 20 24 Blood Pressure 101/62 95/58 L Pulse Oximetry 95 94 93 06/09/21 09:55 06/09/21 10:00 06/09/21 10:55 Temperature Pulse Rate 64 63 63 Respiratory Rate 20 17 22 Blood Pressure 103/68 Pulse Oximetry 94 94 93 06/09/21 11:00 06/09/21 11:55 06/09/21 12:00 Temperature 97.8 F Pulse Rate 62 69 71 Respiratory Rate 21 22 22 Blood Pressure 103/71 111/69 Pulse Oximetry 94 90 L 90 L 06/09/21 12:08 Temperature Pulse Rate 98 H Respiratory Rate 28 H Blood Pressure Pulse Oximetry 90 L Fraction of Inspired Oxygen 0.50 Oxygen Delivery Method Nasal Cannula Oxygen Flow Rate 6 Narrative Exam Narrative: GEN: mild respiratory distress CV: regular rate and rhythm, no murmurs PULM: crackles bilaterally ABD: soft, nontender, nondistended, no organomegaly EXT: warm and well perfused, 3+ pitting edema NEURO: awake and alert Objective Labs Result Diagrams: 06/09/21 04:30 06/09/21 09:20 Labs: Laboratory Results - last 24 hr 06/08/21 06/08/21 06/08/21 20:00 20:00 20:00 WBC 12.0 H RBC 5.84 Hgb 17.0 Hct 53.3 H MCV 91.3 MCH 29.2 MCHC 32.0 RDW 15.0 H Plt Count 211 Neut % (Auto) 81.8 H Lymph % (Auto) 2.8 L [place] % (Auto) 15.3 H Eos % (Auto) 0.0 L Baso % (Auto) 0.1 Neut # (Auto) 9800 H Lymph # (Auto) 300 L [place] # (Auto) 1800 H Eos # (Auto) 0 Baso # (Auto) 0 Total Counted Seg Neutrophils % Band Neutrophils % Lymphocytes % (Manual) Monocytes % (Manual) Neutrophils # (Manual) RBC Morphology D-Dimer 918 H ABG pH ABG pCO2 ABG pO2 ABG HCO3 ABG Total CO2 ABG O2 Saturation ABG Base Excess VBG pH VBG pCO2 VBG pO2 VBG HCO3 VBG Total CO2 VBG O2 Saturation VBG Base Excess FiO2 Sodium 137 Potassium 6.2 H Chloride 90 L Carbon Dioxide 38 H BUN 45 H Creatinine 2.19 H Estimated GFR 30.7 L BUN/Creatinine Ratio 20.5 Glucose 147 H Lactate Calcium 8.5 Magnesium 2.5 H Total Bilirubin 3.2 H Conjugated Bilirubin Unconjugated Bilirubin AST 591 H ALT 646 H Alkaline Phosphatase 84 Lactate Dehydrogenase Total Creatine Kinase CK-MB (CK-2) CK-MB (CK-2) Rel Index Troponin I 0.419 H* NT-Pro-B Natriuret Pep 6250 H Total Protein 7.2 Albumin 4.2 Globulin 3.0 Albumin/Globulin Ratio 1.4 Lipase 136 TSH Urine Color Urine Appearance Urine pH Ur Specific [place] Urine Protein Urine Glucose (UA) Urine Ketones Urine Occult Blood Urine Nitrate Urine Bilirubin Ur Bilirubin Confirm Urine Urobilinogen Ur Leukocyte Esterase Urine RBC Urine WBC Ur Squamous Epith Cells Ur Transition Epith Cell Urine Bacteria Hyaline Casts Urine Mucus Ur Culture Indicated? Nasal Screen MRSA (PCR) U Opiates 300ng/mL cut Ur Oxycodone Screen Urine Methadone Screen Acetaminophen Ur Barbiturates Screen U Tricyclic Antidepress Ur Phencyclidine Scrn Ur Amphetamines Screen U Methamphetamines Scrn Ur MDMA Scrn (Ecstasy) U Benzodiazepines Scrn Urine Cocaine Screen U Marijuana (THC) Screen SARS-CoV-2 (PCR) 06/08/21 06/08/21 06/08/21 20:00 20:00 20:00 WBC RBC Hgb Hct MCV MCH MCHC RDW Plt Count Neut % (Auto) Lymph % (Auto) [place] % (Auto) Eos % (Auto) Baso % (Auto) Neut # (Auto) Lymph # (Auto) [place] # (Auto) Eos # (Auto) Baso # (Auto) Total Counted Seg Neutrophils % Band Neutrophils % Lymphocytes % (Manual) Monocytes % (Manual) Neutrophils # (Manual) RBC Morphology D-Dimer ABG pH ABG pCO2 ABG pO2 ABG HCO3 ABG Total CO2 ABG O2 Saturation ABG Base Excess VBG pH VBG pCO2 VBG pO2 VBG HCO3 VBG Total CO2 VBG O2 Saturation VBG Base Excess FiO2 Sodium Potassium Chloride Carbon Dioxide BUN Creatinine Estimated GFR BUN/Creatinine Ratio Glucose Lactate 4.7 H* Calcium Magnesium Total Bilirubin Conjugated Bilirubin Unconjugated Bilirubin AST ALT Alkaline Phosphatase Lactate Dehydrogenase Total Creatine Kinase CK-MB (CK-2) CK-MB (CK-2) Rel Index Troponin I NT-Pro-B Natriuret Pep Total Protein Albumin Globulin Albumin/Globulin Ratio Lipase TSH 1.70 Urine Color Urine Appearance Urine pH Ur Specific [place] Urine Protein Urine Glucose (UA) Urine Ketones Urine Occult Blood Urine Nitrate Urine Bilirubin Ur Bilirubin Confirm Urine Urobilinogen Ur Leukocyte Esterase Urine RBC Urine WBC Ur Squamous Epith Cells Ur Transition Epith Cell Urine Bacteria Hyaline Casts Urine Mucus Ur Culture Indicated? Nasal Screen MRSA (PCR) U Opiates 300ng/mL cut Ur Oxycodone Screen Urine Methadone Screen Acetaminophen Ur Barbiturates Screen U Tricyclic Antidepress Ur Phencyclidine Scrn Ur Amphetamines Screen U Methamphetamines Scrn Ur MDMA Scrn (Ecstasy) U Benzodiazepines Scrn Urine Cocaine Screen U Marijuana (THC) Screen SARS-CoV-2 (PCR) Negative 06/08/21 06/08/21 06/08/21 20:02 21:03 21:03 WBC RBC Hgb Hct MCV MCH MCHC RDW Plt Count Neut % (Auto) Lymph % (Auto) [place] % (Auto) Eos % (Auto) Baso % (Auto) Neut # (Auto) Lymph # (Auto) [place] # (Auto) Eos # (Auto) Baso # (Auto) Total Counted Seg Neutrophils % Band Neutrophils % Lymphocytes % (Manual) Monocytes % (Manual) Neutrophils # (Manual) RBC Morphology D-Dimer ABG pH ABG pCO2 ABG pO2 ABG HCO3 ABG Total CO2 ABG O2 Saturation ABG Base Excess VBG pH 7.11 L* VBG pCO2 113.3 H VBG pO2 37 VBG HCO3 36 H VBG Total CO2 40 H VBG O2 Saturation 48 L VBG Base Excess 7.0 H FiO2 Sodium Potassium Chloride Carbon Dioxide BUN Creatinine Estimated GFR BUN/Creatinine Ratio Glucose Lactate Calcium Magnesium Total Bilirubin Conjugated Bilirubin Unconjugated Bilirubin AST ALT Alkaline Phosphatase Lactate Dehydrogenase Total Creatine Kinase CK-MB (CK-2) CK-MB (CK-2) Rel Index Troponin I NT-Pro-B Natriuret Pep Total Protein Albumin Globulin Albumin/Globulin Ratio Lipase TSH Urine Color Yellow Urine Appearance Clear Urine pH 5.0 Ur Specific [place] >=1.030 H Urine Protein 2+ H Urine Glucose (UA) Trace H Urine Ketones Trace H Urine Occult Blood Trace-lysed Urine Nitrate Negative Urine Bilirubin 1+ H Ur Bilirubin Confirm Negative Urine Urobilinogen 1.0 Ur Leukocyte Esterase Negative Urine RBC 0-1/hpf Urine WBC 0-1/hpf Ur Squamous Epith Cells 0-1 /hpf Ur Transition Epith Cell 0-1/hpf Urine Bacteria Occasional (0-1) Hyaline Casts 30-100/lpf Urine Mucus 1+ H Ur Culture Indicated? Cult not indicated Nasal Screen MRSA (PCR) U Opiates 300ng/mL cut Positive H Ur Oxycodone Screen Negative Urine Methadone Screen Negative Acetaminophen Ur Barbiturates Screen Negative U Tricyclic Antidepress Negative Ur Phencyclidine Scrn Negative Ur Amphetamines Screen Negative U Methamphetamines Scrn Positive H Ur MDMA Scrn (Ecstasy) Negative U Benzodiazepines Scrn Negative Urine Cocaine Screen Negative U Marijuana (THC) Screen Negative SARS-CoV-2 (PCR) 06/08/21 06/08/21 06/08/21 22:00 22:00 22:20 WBC RBC Hgb Hct MCV MCH MCHC RDW Plt Count Neut % (Auto) Lymph % (Auto) [place] % (Auto) Eos % (Auto) Baso % (Auto) Neut # (Auto) Lymph # (Auto) [place] # (Auto) Eos # (Auto) Baso # (Auto) Total Counted Seg Neutrophils % Band Neutrophils % Lymphocytes % (Manual) Monocytes % (Manual) Neutrophils # (Manual) RBC Morphology D-Dimer ABG pH ABG pCO2 ABG pO2 ABG HCO3 ABG Total CO2 ABG O2 Saturation ABG Base Excess VBG pH 7.24 L VBG pCO2 84.2 H VBG pO2 38 VBG HCO3 36 H VBG Total CO2 39 H VBG O2 Saturation 60 L VBG Base Excess 9.0 H FiO2 Sodium 135 L Potassium 6.5 H* Chloride 92 L Carbon Dioxide 37 H BUN 47 H Creatinine 1.97 H Estimated GFR 34.7 L BUN/Creatinine Ratio 23.9 H Glucose 205 H Lactate 4.0 H Calcium 8.0 L Magnesium Total Bilirubin 2.4 H Conjugated Bilirubin Unconjugated Bilirubin AST 1344 H ALT 1411 H Alkaline Phosphatase 65 Lactate Dehydrogenase Total Creatine Kinase CK-MB (CK-2) CK-MB (CK-2) Rel Index Troponin I NT-Pro-B Natriuret Pep Total Protein 6.3 Albumin 3.5 Globulin 2.8 Albumin/Globulin Ratio 1.3 Lipase TSH Urine Color Urine Appearance Urine pH Ur Specific [place] Urine Protein Urine Glucose (UA) Urine Ketones Urine Occult Blood Urine Nitrate Urine Bilirubin Ur Bilirubin Confirm Urine Urobilinogen Ur Leukocyte Esterase Urine RBC Urine WBC Ur Squamous Epith Cells Ur Transition Epith Cell Urine Bacteria Hyaline Casts Urine Mucus Ur Culture Indicated? Nasal Screen MRSA (PCR) U Opiates 300ng/mL cut Ur Oxycodone Screen Urine Methadone Screen Acetaminophen Ur Barbiturates Screen U Tricyclic Antidepress Ur Phencyclidine Scrn Ur Amphetamines Screen U Methamphetamines Scrn Ur MDMA Scrn (Ecstasy) U Benzodiazepines Scrn Urine Cocaine Screen U Marijuana (THC) Screen SARS-CoV-2 (PCR) 06/09/21 06/09/21 06/09/21 02:00 02:00 02:00 WBC RBC Hgb Hct MCV MCH MCHC RDW Plt Count Neut % (Auto) Lymph % (Auto) [place] % (Auto) Eos % (Auto) Baso % (Auto) Neut # (Auto) Lymph # (Auto) [place] # (Auto) Eos # (Auto) Baso # (Auto) Total Counted Seg Neutrophils % Band Neutrophils % Lymphocytes % (Manual) Monocytes % (Manual) Neutrophils # (Manual) RBC Morphology D-Dimer ABG pH ABG pCO2 ABG pO2 ABG HCO3 ABG Total CO2 ABG O2 Saturation ABG Base Excess VBG pH VBG pCO2 VBG pO2 VBG HCO3 VBG Total CO2 VBG O2 Saturation VBG Base Excess FiO2 Sodium 135 L Potassium 5.4 H Chloride 93 L Carbon Dioxide 40 H* BUN 51 H Creatinine 1.78 H Estimated GFR 39.1 L BUN/Creatinine Ratio 28.7 H Glucose 143 H Lactate 3.2 H Calcium 8.4 Magnesium 2.2 Total Bilirubin Conjugated Bilirubin Unconjugated Bilirubin AST ALT Alkaline Phosphatase Lactate Dehydrogenase Total Creatine Kinase 43 L CK-MB (CK-2) TNP CK-MB (CK-2) Rel Index TNP Troponin I 1.130 H* NT-Pro-B Natriuret Pep Total Protein Albumin Globulin Albumin/Globulin Ratio Lipase TSH Urine Color Urine Appearance Urine pH Ur Specific [place] Urine Protein Urine Glucose (UA) Urine Ketones Urine Occult Blood Urine Nitrate Urine Bilirubin Ur Bilirubin Confirm Urine Urobilinogen Ur Leukocyte Esterase Urine RBC Urine WBC Ur Squamous Epith Cells Ur Transition Epith Cell Urine Bacteria Hyaline Casts Urine Mucus Ur Culture Indicated? Nasal Screen MRSA (PCR) U Opiates 300ng/mL cut Ur Oxycodone Screen Urine Methadone Screen Acetaminophen Ur Barbiturates Screen U Tricyclic Antidepress Ur Phencyclidine Scrn Ur Amphetamines Screen U Methamphetamines Scrn Ur MDMA Scrn (Ecstasy) U Benzodiazepines Scrn Urine Cocaine Screen U Marijuana (THC) Screen SARS-CoV-2 (PCR) 06/09/21 06/09/21 06/09/21 02:30 03:56 04:30 WBC RBC Hgb Hct MCV MCH MCHC RDW Plt Count Neut % (Auto) Lymph % (Auto) [place] % (Auto) Eos % (Auto) Baso % (Auto) Neut # (Auto) Lymph # (Auto) [place] # (Auto) Eos # (Auto) Baso # (Auto) Total Counted Seg Neutrophils % Band Neutrophils % Lymphocytes % (Manual) Monocytes % (Manual) Neutrophils # (Manual) RBC Morphology D-Dimer ABG pH 7.40 ABG pCO2 58.6 H ABG pO2 79 L ABG HCO3 36 H ABG Total CO2 38 H ABG O2 Saturation 95 ABG Base Excess 11.0 H VBG pH VBG pCO2 VBG pO2 VBG HCO3 VBG Total CO2 VBG O2 Saturation VBG Base Excess FiO2 50 Sodium Potassium Chloride Carbon Dioxide BUN Creatinine Estimated GFR BUN/Creatinine Ratio Glucose Lactate Calcium Magnesium Total Bilirubin Conjugated Bilirubin Unconjugated Bilirubin AST ALT Alkaline Phosphatase Lactate Dehydrogenase Total Creatine Kinase CK-MB (CK-2) CK-MB (CK-2) Rel Index Troponin I 1.240 H* NT-Pro-B Natriuret Pep Total Protein Albumin Globulin Albumin/Globulin Ratio Lipase TSH Urine Color Urine Appearance Urine pH Ur Specific [place] Urine Protein Urine Glucose (UA) Urine Ketones Urine Occult Blood Urine Nitrate Urine Bilirubin Ur Bilirubin Confirm Urine Urobilinogen Ur Leukocyte Esterase Urine RBC Urine WBC Ur Squamous Epith Cells Ur Transition Epith Cell Urine Bacteria Hyaline Casts Urine Mucus Ur Culture Indicated? Nasal Screen MRSA (PCR) Negative for mrsa U Opiates 300ng/mL cut Ur Oxycodone Screen Urine Methadone Screen Acetaminophen Ur Barbiturates Screen U Tricyclic Antidepress Ur Phencyclidine Scrn Ur Amphetamines Screen U Methamphetamines Scrn Ur MDMA Scrn (Ecstasy) U Benzodiazepines Scrn Urine Cocaine Screen U Marijuana (THC) Screen SARS-CoV-2 (PCR) 06/09/21 06/09/21 06/09/21 04:30 04:30 04:30 WBC 12.5 H RBC 5.36 Hgb 15.3 Hct 47.7 MCV 89.1 MCH 28.5 MCHC 32.0 RDW 14.7 Plt Count 193 Neut % (Auto) Not Reportable Lymph % (Auto) Not Reportable [place] % (Auto) Not Reportable Eos % (Auto) Not Reportable Baso % (Auto) Not Reportable Neut # (Auto) Lymph # (Auto) Not Reportable [place] # (Auto) Not Reportable Eos # (Auto) Baso # (Auto) Not Reportable Total Counted 100 Seg Neutrophils % 89.0 H Band Neutrophils % 4.0 Lymphocytes % (Manual) 2.0 L Monocytes % (Manual) 5.0 Neutrophils # (Manual) 37337 H RBC Morphology Normal morphology D-Dimer ABG pH ABG pCO2 ABG pO2 ABG HCO3 ABG Total CO2 ABG O2 Saturation ABG Base Excess VBG pH VBG pCO2 VBG pO2 VBG HCO3 VBG Total CO2 VBG O2 Saturation VBG Base Excess FiO2 Sodium 135 L Potassium 5.7 H Chloride 92 L Carbon Dioxide 38 H BUN 52 H Creatinine 1.68 H Estimated GFR 41.7 L BUN/Creatinine Ratio 31.0 H Glucose 131 H Lactate 2.0 Calcium 8.5 Magnesium Total Bilirubin Conjugated Bilirubin Unconjugated Bilirubin AST ALT Alkaline Phosphatase Lactate Dehydrogenase Total Creatine Kinase CK-MB (CK-2) CK-MB (CK-2) Rel Index Troponin I NT-Pro-B Natriuret Pep Total Protein Albumin Globulin Albumin/Globulin Ratio Lipase TSH Urine Color Urine Appearance Urine pH Ur Specific [place] Urine Protein Urine Glucose (UA) Urine Ketones Urine Occult Blood Urine Nitrate Urine Bilirubin Ur Bilirubin Confirm Urine Urobilinogen Ur Leukocyte Esterase Urine RBC Urine WBC Ur Squamous Epith Cells Ur Transition Epith Cell Urine Bacteria Hyaline Casts Urine Mucus Ur Culture Indicated? Nasal Screen MRSA (PCR) U Opiates 300ng/mL cut Ur Oxycodone Screen Urine Methadone Screen Acetaminophen Ur Barbiturates Screen U Tricyclic Antidepress Ur Phencyclidine Scrn Ur Amphetamines Screen U Methamphetamines Scrn Ur MDMA Scrn (Ecstasy) U Benzodiazepines Scrn Urine Cocaine Screen U Marijuana (THC) Screen SARS-CoV-2 (PCR) 06/09/21 06/09/21 06/09/21 09:20 09:20 09:20 WBC RBC Hgb Hct MCV MCH MCHC RDW Plt Count Neut % (Auto) Lymph % (Auto) [place] % (Auto) Eos % (Auto) Baso % (Auto) Neut # (Auto) Lymph # (Auto) [place] # (Auto) Eos # (Auto) Baso # (Auto) Total Counted Seg Neutrophils % Band Neutrophils % Lymphocytes % (Manual) Monocytes % (Manual) Neutrophils # (Manual) RBC Morphology D-Dimer ABG pH ABG pCO2 ABG pO2 ABG HCO3 ABG Total CO2 ABG O2 Saturation ABG Base Excess VBG pH VBG pCO2 VBG pO2 VBG HCO3 VBG Total CO2 VBG O2 Saturation VBG Base Excess FiO2 Sodium 134 L Potassium 5.3 H Chloride 91 L Carbon Dioxide 40 H* BUN 56 H Creatinine 1.54 H Estimated GFR 46.2 L BUN/Creatinine Ratio 36.4 H Glucose 139 H Lactate Calcium 8.4 Magnesium Total Bilirubin 1.8 H Conjugated Bilirubin 0.0 Unconjugated Bilirubin 1.5 H AST 1328 H ALT 1892 H Alkaline Phosphatase 67 Lactate Dehydrogenase Total Creatine Kinase CK-MB (CK-2) CK-MB (CK-2) Rel Index Troponin I NT-Pro-B Natriuret Pep Total Protein 5.7 L Albumin 3.2 L Globulin 2.5 Albumin/Globulin Ratio 1.3 Lipase TSH Urine Color Urine Appearance Urine pH Ur Specific [place] Urine Protein Urine Glucose (UA) Urine Ketones Urine Occult Blood Urine Nitrate Urine Bilirubin Ur Bilirubin Confirm Urine Urobilinogen Ur Leukocyte Esterase Urine RBC Urine WBC Ur Squamous Epith Cells Ur Transition Epith Cell Urine Bacteria Hyaline Casts Urine Mucus Ur Culture Indicated? Nasal Screen MRSA (PCR) U Opiates 300ng/mL cut Ur Oxycodone Screen Urine Methadone Screen Acetaminophen < 10 L Ur Barbiturates Screen U Tricyclic Antidepress Ur Phencyclidine Scrn Ur Amphetamines Screen U Methamphetamines Scrn Ur MDMA Scrn (Ecstasy) U Benzodiazepines Scrn Urine Cocaine Screen U Marijuana (THC) Screen SARS-CoV-2 (PCR) 06/09/21 09:20 WBC RBC Hgb Hct MCV MCH MCHC RDW Plt Count Neut % (Auto) Lymph % (Auto) [place] % (Auto) Eos % (Auto) Baso % (Auto) Neut # (Auto) Lymph # (Auto) [place] # (Auto) Eos # (Auto) Baso # (Auto) Total Counted Seg Neutrophils % Band Neutrophils % Lymphocytes % (Manual) Monocytes % (Manual) Neutrophils # (Manual) RBC Morphology D-Dimer ABG pH ABG pCO2 ABG pO2 ABG HCO3 ABG Total CO2 ABG O2 Saturation ABG Base Excess VBG pH VBG pCO2 VBG pO2 VBG HCO3 VBG Total CO2 VBG O2 Saturation VBG Base Excess FiO2 Sodium Potassium Chloride Carbon Dioxide BUN Creatinine Estimated GFR BUN/Creatinine Ratio Glucose Lactate Calcium Magnesium Total Bilirubin Conjugated Bilirubin Unconjugated Bilirubin AST ALT Alkaline Phosphatase Lactate Dehydrogenase 2661 H Total Creatine Kinase CK-MB (CK-2) CK-MB (CK-2) Rel Index Troponin I NT-Pro-B Natriuret Pep Total Protein Albumin Globulin Albumin/Globulin Ratio Lipase TSH Urine Color Urine Appearance Urine pH Ur Specific [place] Urine Protein Urine Glucose (UA) Urine Ketones Urine Occult Blood Urine Nitrate Urine Bilirubin Ur Bilirubin Confirm Urine Urobilinogen Ur Leukocyte Esterase Urine RBC Urine WBC Ur Squamous Epith Cells Ur Transition Epith Cell Urine Bacteria Hyaline Casts Urine Mucus Ur Culture Indicated? Nasal Screen MRSA (PCR) U Opiates 300ng/mL cut Ur Oxycodone Screen Urine Methadone Screen Acetaminophen Ur Barbiturates Screen U Tricyclic Antidepress Ur Phencyclidine Scrn Ur Amphetamines Screen U Methamphetamines Scrn Ur MDMA Scrn (Ecstasy) U Benzodiazepines Scrn Urine Cocaine Screen U Marijuana (THC) Screen SARS-CoV-2 (PCR) [facility] Medical History Chicken pox (~1964) Fractures (~1993) Hearing loss Measles (~1965) Mumps (~1967) Vision disorder Surgical History Anesthesia Broken nose (~1981) History of hernia surgery (~1964) Social History Smoking Status: Current every day smoker Tobacco: How many years used: 50 quit status: not considering quitting second hand exposure: No alcohol intake: current substance use type: marijuana (once in awhile) Assessment & Plan Assessment & Plan narrative: 1. Acute hypercapneic/hypoxemic respiratory failure -likely multifactorial from smoking history, intoxication from substances, and acute CHF exacerbation -may also have component of [place] as well -initially on BIPAP, weaning well so far -continue with precedex while on BIPAP, and then attempt to wean off -doubt has had infection 2. Acute systolic CHF exacerbation with NSTEMI and acute pulmonary edema -grossly volume overloaded with lower extremity and pulmonary edema -EF 25% -fluid restriction, low sodium diet -IV lasix -monitor I/Os and weight closely -EKG shows T-wave inversions in lateral leads -hold beta-randell for now given hypotension, how ema for now given GARRET -for nstemi on lovenox full dose, aspirin -hold statin with transaminitis -look for transfer for possible cardiac cath 3. Tobacco abuse -encouraged abstinence -sw consult 4. Methampheatime abuse -sw consult 5. GARRET with hyperkalemia -likely secondary to volume overload -improving with diuresis -avoid nephrotoxins 6. Transaminitis -alt/ast >1000 -tylenol negative -inr ok, and no encephalopathic so no acute liver failure -etiology is possibly ischemic given profound chf, will send viral hepatitis serologies -abd us shows no acute findiings, chronic changes in liver parenchyma -ordered for dopplers to eval hepatic artery/vein for possible thrombus 7. Encephalopathy, improved -etiology multifactorial from hypoxemia and substance ingestion -treat as above Patient is critically ill Code status to be discussed as patient is improving mental status Not on any medications Will attempt transfer for possible cardiac cath Time Spent With Patient Critical Care time: I spent a total of [] minutes of critical care time on this patient's care today; this time is exclusive of procedural time.
--- NOTE | 2021-06-09 13:12 | CM.IDA ---
Initial DCP Assessment Note Pt is a 61 yo male, resident of [place], arrives via EMS w/resp distress, SO placed call to EMS when patient's hands/feet were turning purple. Patient arrives to the ED, central line was placed, patient placed on BiPAP. UA which was positive for opiates and methamphetamines. He was also given Haldol for agitation. trnsfer was attempted from the ED w/no accepting or available beds. PCP: Vi Esquivel Payer: John/[place] Reviewed chart and spoke w/RN Mavis; patient is improving, more alert and speaking in short sentences, staff transitioning patient off bipap today. [employer]CH[employer]ICIAN consult requested for meth+. Transfer for Cardiac cath still a possibility if accepting facility found. Will follow closely as medical POC unfolds, if patient can engage in assessment tomorrow will complete at that time at bedside. ERI Loza Discharge Planning/Care Management CM Discharge Assessment Start: 06/09/21 13:03 Freq: Status: Active Protocol: Document 06/09/21 13:03 JOE (Rec: 06/09/21 13:11 [id number]) Discharge Planning Assessment Assigned Avp ERI Loza DPOA/Assigned Designee Name Naty Ryan, friend (no phone), Drew Aranda, dtr ([place]) [phone] Contact Information Nathalia Duke, friend ( [place]) [phone] Advance Directives? No History Provided By Medical Record Comment Unknown, chart indicates lives at [facility] Household Members significant other Comment Unknown Independent with ADL's Yes Is patient alert and oriented? Yes Comment Unable to assess at this time Barriers to Discharge No Comment Likely return home w/friends once medically stable Discharge Plan Home Transportation Arrangement Self or friends ? Referrals Initiated None needed Additional Comment At this time
--- NOTE | 2021-06-09 14:40 | PC.NURSE ---
Shift summary: Beginning of shift patient was restless and agitated during ECHO and Ultrasound, attempting to remove BIPAP, mumbling with occasional words, and unable to follow directions well. Precedex was increased as documented and dose of prn haldol given as ordered for agitation. Patient able to wean from BIPAP to NC around noon, currently on 6L NC and denies shortness of breath. Patient's cognition improving this afternoon, now more alert and answering questions appropriately. Denies pain. ECHO, Abdominal US, and Visceral Us doppler completed.
[2021-06-09 14:52] LABS: Enterococcus species Not Detected (Not Detect); Listeria monocytogenes Not Detected (Not Detect); Vancomycin-rest genes A/B Not Detected (Not Detect)
[2021-06-09 14:53] LABS: Acinetobacter baumannii Not Detected (Not Detect); Candida albicans Not Detected (Not Detect); Candida glabrata Not Detected (Not Detect); Candida krusei Not Detected (Not Detect); Candida parapsilosis Not Detected (Not Detect); Candida tropicalis Not Detected (Not Detect); E. coli Not Detected (Not Detect); Enterobacter cloacae complex Not Detected (Not Detect); Enterobacteriaceae species Not Detected (Not Detect); Haemophilus influenzae Not Detected (Not Detect); KPC (carbapenem-resist gene) Not Detected (Not Detect); Methicillin-resistant gene Detected (Not Detect); Neisseria meningitidis Not Detected (Not Detect); Proteus species Not Detected (Not Detect); Pseudomonas aeruginosa Not Detected (Not Detect); Serratia marcescens Not Detected (Not Detect); Staphylococcus species Detected (Not Detect); Streptococcus agalactiae (Gr B Not Detected (Not Detect); Streptococcus pneumonia Not Detected (Not Detect); Streptococcus pyogenes (Gr A) Not Detected (Not Detect); Streptococcus species Not Detected (Not Detect)
[2021-06-09 15:30] LABS: BUN Creatinine Ratio 42.5 (6-22); Blood Urea Nitrogen 62 mg/dL (9-20); Calcium 8.2 mg/dL (8.4-10.2); Carbon Dioxide 39 mmol/L (22-32); Chloride 92 mmol/L (98-107); Estimated Glomerular Filt Rate 49.1 mL/min (>60); Glucose 171 mg/dL (80-110); HEMOLYSIS < 15 (0-50); Sodium 133 mmol/L (137-145)
[2021-06-09 15:46] LABS: Troponin I 0.933 ng/mL (0.01-0.034)
--- NOTE | 2021-06-09 17:07 | PC.NURSE ---
Addendum entered by Siri Drummond R.N. 06/09/21 22:46: Plan being made to transfer patient to a [facility] facility in the morning. Significant other informed. Addendum entered by Siri Drummond R.N. 06/09/21 22:12: Precedex titrated to off this evening. Pt. tolerating well, alert, oriented and appropriate. Denies pain throughout shift. Continuing to deep breathe/cough, and use incentive spirometer. VSS, 7 LNC (humidified) at this time. Verbalizes understanding of situation and POC. Original Note: Report received, care assumed 1530. Pt sleeping, not arousable to voice but to touch. Oriented to all but year. VSS on 10 LNC, humidified. Coughing and expectorating thick opaque sputum. Sitting up in bed, eating dinner. Talking, coughing.
[2021-06-09 17:27] LABS: Hepatitis B Surface Antigen NEGATIVE s/c (NEGATIVE)
--- NOTE | 2021-06-09 20:29 | PM.EVENT ---
Event Note Event Note: Patient discussed w nursing staff on rounds. He had been weaned off BiPAP. He remains on lasix (q8 -> q12) for diuresis. Trop remains elevated and plan to transfer tomorrow for cardiac workup. He is on ASA and treatment dose lovenox for his NSTMI. Statin not intraoduces due to elevated transaminases/LFTs which are likely due to CHF and passive hepatic congestion. OK to wean O2 to keep sats low 90s. Likely need outpatient sleep study to see if CPAP/BiPAP is needed.
[2021-06-09] MEDS: SODIUM CHLORIDE 0.9% FLUSH 10 ML IV (20:43)
[2021-06-09] MEDS: ENOXAPARIN 60 MG/0.6 ML SYRINGE 115 MG SUBCUT (20:43)
[2021-06-10] VITALS (20 sets, daily range): BP systolic 100–112; BP diastolic 65–76; PULSE 77–122; RESP 13–26; TEMP 36.5–36.7; O2SAT 89–94
--- NOTE | 2021-06-10 03:33 | P.DS_ITS ---
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 Per report from the emergency department his significant other called the medics because she was worried that his hands and feet were purple. On arrival they found him significantly hypoxic with shallow breathing. He was given 1 mg of Narcan and seemed to improve. Patient was altered when he arrived. There was no localizing neurological symptoms. Further history was unobtainable as the patient was unable to provide any history. In the emergency room the patient was found to be in hypercapnic respiratory failure. His initial ABG revealed a pH is 7.1, with a pCO2 of 113. The patient also had a UA which was positive for opiates and methamphetamines. Patient was tachycardic with stable blood pressure on admission. Patient was placed on BiPA P. Repeat ABG showed a pH improved to 7.24. He was also given Haldol for agitation. There was some difficulty with finding the appropriate face mask for BiPAP. He was also found to be hyperkalemic with a potassium of 6.2. Patient was given Lasix insulin and glucose and his repeat potassium was 6.5. Patient also noted to be in renal failure. His creatinine most recently in 2019 was 0.7. On admission it was 2.9. Patient had markedly elevated liver function tests with an AST of 1344 and an ALT of 14 11, in addition his troponin was elevated at 0.419. The emergency department attempted to transfer the patient to an outside hospital. They contacted [facility] in [facility]. In addition they spoke to the coordinating transfer center at [facility] and there were no ICU beds available. As such the patient was admitted to the hospital for inpatient treatment. Patient remains agitated. He was given 2 mg of Haldol. He will be started on Precedex drip. Patient is EN route to the intensive care unit at this time. For the laboratory studies reveal a proBNP elevated at 62 50. Chest x-ray shows pulmonary vascular engorgement. Patient will continue diuresis for presumed congestive heart failure. Discharge Providers Provider Date of admission: 06/08/21 23:33 Discharge Date: 06/10/21 Primary care physician: RAUL Machado Discharge provider: Jaimee Burk MD Summary Hospital Course Discharge Diagnosis: 1. NSTEMI 2. Acute systolic heart failure likely secondary to NSTEMI 3. Acute hypoxic respiratory failure, present on admission, improved 4. Acute metabolic encephalopathy, improved 5. Methamphetamine abuse 6. Acute kidney injury with hyperkalemia 7. Transaminitis Hospital Course: Patient was admitted to the hospital having been found down and unresponsive. He was found to be in acute hypoxic respiratory failure, VBG 7.24/84.2/38/36/sat 60 %,florid pulmonary edema, with associated acute renal failure and hyperkalemia. The patient was diuresed with improvement in his renal function. In addition his troponins were elevated at admission, troponin I was 0.419 on admission. The patient's initial EKG did not show any ST T wave abnormalities. The patient's troponins continued to rise with a peak of 1.240, subsequent EKG revealed lateral ST T wave abnormalities. Patient was started on IV heparin for presumed NSTEMI. Echocardiogram was obtained. This showed left ventricular mild concentric hypertrophy. Ejection fraction was 25+/- 5%. There was severe global hypokinesis of left ventricle. The mid to distal posterior lateral wall appears to be akinetic. The intraventricular septum was flattened. Right ventricle is mildly dilated. There was mild tricuspid regurgitation. The aortic root was moderately dilated. Abdominal ultrasound revealed a liver which was diffusely increased in echotexture without focal abnormalities. Findings consistent with hepatocellular disease. There was borderline gallbladder wall thickening. No evidence to suggest acute cholecystitis. Patient underwent duplex ultrasound, this revealed patency of the main hepatic vein, portal vein, splenic vein, and IVC. Patient was gradually weaned off BiPAP. He remained on Lasix 80 mg Q 8 hours. A statin was not giving given his markedly elevated transaminases. He continue to wean off oxygen and was on 2 L. it was felt that the patient very likely may have obstructive sleep apnea and would require an outpatient sleep study as well. He had significant sign ificant improvement in his renal function, creatinine elevated on admission of 1.97, now 1.46. Patient's white count continues to be elevated at 12.5. Troponin peaked at 1.24 is now 0.933. Patient had evidence of shock liver, with markedly elevated liver function. AST 1328, ALT 1892, LDH 2661, bilirubin peaked at 2.4 now 1.8. Arrangements were made to transfer the patient to the [facility] for acute cardiac catheterization given his NSTEMI. At the time of transfer the patient had no chest pain, he denied any shortness of breath, and was agreeable to transfer. Status at Discharge Cognitive/behavioral status at discharge: oriented Overall status at discharge: patient is not back to baseline Exam Vital Signs (past 8 hours): - 06/09/21 19:45 06/09/21 19:50 06/09/21 20:00 Temperature Pulse Rate 68 69 Respiratory Rate 14 15 Blood Pressure 97/61 Pulse Oximetry 95 94 95 06/09/21 20:15 06/09/21 20:30 06/09/21 20:45 Temperature Pulse Rate 71 69 69 Respiratory Rate 22 21 20 Blood Pressure Pulse Oximetry 96 95 94 06/09/21 20:56 06/09/21 21:00 06/09/21 21:15 Temperature Pulse Rate 69 70 67 Respiratory Rate 25 H 19 19 Blood Pressure 99/68 98/67 Pulse Oximetry 06/09/21 21:30 06/09/21 21:45 06/09/21 22:00 Temperature Pulse Rate 65 71 68 Respiratory Rate 18 15 23 Blood Pressure 102/67 Pulse Oximetry 06/09/21 22:15 06/09/21 22:30 06/09/21 22:45 Temperature Pulse Rate 73 71 72 Respiratory Rate 18 16 19 Blood Pressure Pulse Oximetry 06/09/21 23:00 06/09/21 23:15 06/09/21 23:30 Temperature Pulse Rate 70 115 H 74 Respiratory Rate 18 21 20 Blood Pressure 103/74 Pulse Oximetry 06/09/21 23:45 06/10/21 00:00 06/10/21 00:15 Temperature Pulse Rate 76 77 80 Respiratory Rate 20 25 H 23 Blood Pressure 109/76 Pulse Oximetry 93 06/10/21 00:30 06/10/21 00:45 06/10/21 01:00 Temperature 97.7 F Pulse Rate 86 81 80 Respiratory Rate 21 15 14 Blood Pressure 101/65 Pulse Oximetry 92 92 93 06/10/21 02:27 06/10/21 03:13 Temperature 97.7 F 98.0 F Pulse Rate Respiratory Rate Blood Pressure Pulse Oximetry Fraction of Inspired Oxygen 0.50 Oxygen Delivery Method High Flow Nasal Cannula Oxygen Flow Rate 10 Narrative Exam Narrative: Pleasant gentleman resting comfortably in no obvious distress Resp Other: Lungs: Diffuse end-expiratory wheezing, with scattered rhonchi bilaterally Cardio Other: Regular rate and rhythm normal S1-S2 GI Other: Abdomen soft nontender nondistended Skin Other: Multiple erythematous eruptions on the abdomen Extrem Other: 3+ pitting edema bilaterally Psych Other: The patient is awake and alert, he answers questions appropriately, Objective ECG Impression: Sinus rhythm, with T-wave inversions in the lateral leads Labs Result Diagrams: 06/09/21 04:30 06/09/21 15:05 Labs: Laboratory Results - last 24 hr 06/08/21 06/09/21 06/09/21 20:00 03:56 04:30 WBC RBC Hgb Hct MCV MCH MCHC RDW Plt Count Neut % (Auto) Lymph % (Auto) [place] % (Auto) Eos % (Auto) Baso % (Auto) Lymph # (Auto) [place] # (Auto) Baso # (Auto) Total Counted Seg Neutrophils % Band Neutrophils % Lymphocytes % (Manual) Monocytes % (Manual) Neutrophils # (Manual) RBC Morphology Sodium Potassium Chloride Carbon Dioxide BUN Creatinine Estimated GFR BUN/Creatinine Ratio Glucose Lactate Calcium Total Bilirubin Conjugated Bilirubin Unconjugated Bilirubin AST ALT Alkaline Phosphatase Lactate Dehydrogenase Troponin I 1.240 H* Total Protein Albumin Globulin Albumin/Globulin Ratio Nasal Screen MRSA (PCR) Negative for mrsa Acetaminophen A. baumannii (PCR) Not detected Thu albicans (PCR) Not detected C. glabrata (PCR) Not detected C. krusei (PCR) Not detected C. parapsilosis (PCR) Not detected C. tropicalis (PCR) Not detected Enterobacteriac sp PCR Not detected E. cloacae complex PCR Not detected Enterococcus sp PCR Not detected E. coli (PCR) Not detected H. influenzae (PCR) Not detected Hep Bs Antigen Klebsiella oxytoca PCR Not detected Klebsiella pneumoniae Not detected List. monocytogenes PCR Not detected N. meningitidis (PCR) Not detected Proteus species (PCR) Not detected Serratia marcescens PCR Not detected Staphylococcus sp PCR Detected H Staph aureus (PCR) Not detected mecA-Methicil Res Gene Detected H Streptococcus sp PCR Not detected Group A Strep (PCR) Not detected Strep agalactiae (PCR) Not detected Strep pneumoniae (PCR) Not detected P. aeruginosa (PCR) Not detected Aurora/B-Vanco Res Genes Not detected KPC-Carbap Res Gene PCR Not detected 06/09/21 06/09/21 06/09/21 04:30 04:30 04:30 WBC 12.5 H RBC 5.36 Hgb 15.3 Hct 47.7 MCV 89.1 MCH 28.5 MCHC 32.0 RDW 14.7 Plt Count 193 Neut % (Auto) Not Reportable Lymph % (Auto) Not Reportable [place] % (Auto) Not Reportable Eos % (Auto) Not Reportable Baso % (Auto) Not Reportable Lymph # (Auto) Not Reportable [place] # (Auto) Not Reportable Baso # (Auto) Not Reportable Total Counted 100 Seg Neutrophils % 89.0 H Band Neutrophils % 4.0 Lymphocytes % (Manual) 2.0 L Monocytes % (Manual) 5.0 Neutrophils # (Manual) 74091 H RBC Morphology Normal morphology Sodium 135 L Potassium 5.7 H Chloride 92 L Carbon Dioxide 38 H BUN 52 H Creatinine 1.68 H Estimated GFR 41.7 L BUN/Creatinine Ratio 31.0 H Glucose 131 H Lactate 2.0 Calcium 8.5 Total Bilirubin Conjugated Bilirubin Unconjugated Bilirubin AST ALT Alkaline Phosphatase Lactate Dehydrogenase Troponin I Total Protein Albumin Globulin Albumin/Globulin Ratio Nasal Screen MRSA (PCR) Acetaminophen A. baumannii (PCR) Thu albicans (PCR) C. glabrata (PCR) C. krusei (PCR) C. parapsilosis (PCR) C. tropicalis (PCR) Enterobacteriac sp PCR E. cloacae complex PCR Enterococcus sp PCR E. coli (PCR) H. influenzae (PCR) Hep Bs Antigen Klebsiella oxytoca PCR Klebsiella pneumoniae List. monocytogenes PCR N. meningitidis (PCR) Proteus species (PCR) Serratia marcescens PCR Staphylococcus sp PCR Staph aureus (PCR) mecA-Methicil Res Gene Streptococcus sp PCR Group A Strep (PCR) Strep agalactiae (PCR) Strep pneumoniae (PCR) P. aeruginosa (PCR) Aurora/B-Vanco Res Genes KPC-Carbap Res Gene PCR 06/09/21 06/09/21 06/09/21 09:20 09:20 09:20 WBC RBC Hgb Hct MCV MCH MCHC RDW Plt Count Neut % (Auto) Lymph % (Auto) [place] % (Auto) Eos % (Auto) Baso % (Auto) Lymph # (Auto) [place] # (Auto) Baso # (Auto) Total Counted Seg Neutrophils % Band Neutrophils % Lymphocytes % (Manual) Monocytes % (Manual) Neutrophils # (Manual) RBC Morphology Sodium 134 L Potassium 5.3 H Chloride 91 L Carbon Dioxide 40 H* BUN 56 H Creatinine 1.54 H Estimated GFR 46.2 L BUN/Creatinine Ratio 36.4 H Glucose 139 H Lactate Calcium 8.4 Total Bilirubin 1.8 H Conjugated Bilirubin 0.0 Unconjugated Bilirubin 1.5 H AST 1328 H ALT 1892 H Alkaline Phosphatase 67 Lactate Dehydrogenase Troponin I Total Protein 5.7 L Albumin 3.2 L Globulin 2.5 Albumin/Globulin Ratio 1.3 Nasal Screen MRSA (PCR) Acetaminophen < 10 L A. baumannii (PCR) Thu albicans (PCR) C. glabrata (PCR) C. krusei (PCR) C. parapsilosis (PCR) C. tropicalis (PCR) Enterobacteriac sp PCR E. cloacae complex PCR Enterococcus sp PCR E. coli (PCR) H. influenzae (PCR) Hep Bs Antigen Klebsiella oxytoca PCR Klebsiella pneumoniae List. monocytogenes PCR N. meningitidis (PCR) Proteus species (PCR) Serratia marcescens PCR Staphylococcus sp PCR Staph aureus (PCR) mecA-Methicil Res Gene Streptococcus sp PCR Group A Strep (PCR) Strep agalactiae (PCR) Strep pneumoniae (PCR) P. aeruginosa (PCR) Aurora/B-Vanco Res Genes KPC-Carbap Res Gene PCR 06/09/21 06/09/21 06/09/21 09:20 11:20 15:05 WBC RBC Hgb Hct MCV MCH MCHC RDW Plt Count Neut % (Auto) Lymph % (Auto) [place] % (Auto) Eos % (Auto) Baso % (Auto) Lymph # (Auto) [place] # (Auto) Baso # (Auto) Total Counted Seg Neutrophils % Band Neutrophils % Lymphocytes % (Manual) Monocytes % (Manual) Neutrophils # (Manual) RBC Morphology Sodium 133 L Potassium 5.0 Chloride 92 L Carbon Dioxide 39 H BUN 62 H Creatinine 1.46 H Estimated GFR 49.1 L BUN/Creatinine Ratio 42.5 H Glucose 171 H Lactate Calcium 8.2 L Total Bilirubin Conjugated Bilirubin Unconjugated Bilirubin AST ALT Alkaline Phosphatase Lactate Dehydrogenase 2661 H Troponin I Total Protein Albumin Globulin Albumin/Globulin Ratio Nasal Screen MRSA (PCR) Acetaminophen A. baumannii (PCR) Thu albicans (PCR) C. glabrata (PCR) C. krusei (PCR) C. parapsilosis (PCR) C. tropicalis (PCR) Enterobacteriac sp PCR E. cloacae complex PCR Enterococcus sp PCR E. coli (PCR) H. influenzae (PCR) Hep Bs Antigen Negative Klebsiella oxytoca PCR Klebsiella pneumoniae List. monocytogenes PCR N. meningitidis (PCR) Proteus species (PCR) Serratia marcescens PCR Staphylococcus sp PCR Staph aureus (PCR) mecA-Methicil Res Gene Streptococcus sp PCR Group A Strep (PCR) Strep agalactiae (PCR) Strep pneumoniae (PCR) P. aeruginosa (PCR) Aurora/B-Vanco Res Genes KPC-Carbap Res Gene PCR 06/09/21 15:05 WBC RBC Hgb Hct MCV MCH MCHC RDW Plt Count Neut % (Auto) Lymph % (Auto) [place] % (Auto) Eos % (Auto) Baso % (Auto) Lymph # (Auto) [place] # (Auto) Baso # (Auto) Total Counted Seg Neutrophils % Band Neutrophils % Lymphocytes % (Manual) Monocytes % (Manual) Neutrophils # (Manual) RBC Morphology Sodium Potassium Chloride Carbon Dioxide BUN Creatinine Estimated GFR BUN/Creatinine Ratio Glucose Lactate Calcium Total Bilirubin Conjugated Bilirubin Unconjugated Bilirubin AST ALT Alkaline Phosphatase Lactate Dehydrogenase Troponin I 0.933 H* Total Protein Albumin Globulin Albumin/Globulin Ratio Nasal Screen MRSA (PCR) Acetaminophen A. baumannii (PCR) Thu albicans (PCR) C. glabrata (PCR) C. krusei (PCR) C. parapsilosis (PCR) C. tropicalis (PCR) Enterobacteriac sp PCR E. cloacae complex PCR Enterococcus sp PCR E. coli (PCR) H. influenzae (PCR) Hep Bs Antigen Klebsiella oxytoca PCR Klebsiella pneumoniae List. monocytogenes PCR N. meningitidis (PCR) Proteus species (PCR) Serratia marcescens PCR Staphylococcus sp PCR Staph aureus (PCR) mecA-Methicil Res Gene Streptococcus sp PCR Group A Strep (PCR) Strep agalactiae (PCR) Strep pneumoniae (PCR) P. aeruginosa (PCR) Aurora/B-Vanco Res Genes KPC-Carbap Res Gene PCR [facility] Medical History Chicken pox (~1964) Fractures (~1993) Hearing loss Measles (~1965) Mumps (~1967) Vision disorder Surgical History Anesthesia Broken nose (~1981) History of hernia surgery (~1964) Social History household members: significant other Smoking Status: Current every day smoker Tobacco: How many years used: 50 quit status: not considering quitting second hand exposure: No alcohol intake: current substance use type: marijuana (once in awhile) Discharge Assessment & Plan Assessment and Plan Assessment: 1. NSTEMI 2. Acute systolic heart failure, with an ejection fraction of 25% with mid to posterior lateral wall akinetic 3. Acute hypoxic respiratory failure 4. Acute metabolic encephalopathy, present on admission, improved 5. Acute renal failure, with associated hyperkalemia, present on admission, improved 6. Elevated transaminases, felt to be secondary to passive congestion from severe heart failure 7. Methamphetamine abuse 8. Nicotine dependence Plan of Treatment: Patient to be transferred to the [facility] for definitive cardiac catheterization Discharge Plan Discharge Plan Patient Disposition: [facility] Other facility: [facility] Discharge orders & Medications Prescriptions: No Action No Known Home Medications RF: 0 Medication counseling provided by Pharmacist: No Follow up/Referrals: Vi Esquivel ARNP [Primary Care Provider] - Discharge Health Status Multidrug resistant organism: No MDRO Diet/Activity/Treatments Diet: Nothing by Mouth Activity: bed rest Discharge Data Primary Care Provider: Vi Esquivel
[2021-06-10 04:39] LABS: Hepatitis A Ab Total Negative (Negative); Hepatitis B Core Antibody Negative (Negative)
--- NOTE | 2021-06-10 04:41 | PC.NURSE ---
0415- Report given to EMS for transport to [facility]. Patient alert and oriented at time of transfer. Patient Tele removed. Copy of chart and transfer paperwork provided to EMS. Patient belongings given to transport team. Patient stable at time of transfer.
[2021-06-11 03:21] LABS: Hepatitis B Surf Ab Qualitativ Non Reactive (.)
== END 2021-06-10 04:30 | disposition short-term general hospital (02) | DRG 190 ==
LOC: ED 22:04 → AC 23:34 → ICU 06-09 02:31
PROVIDERS: Internal Medicine; Admitting Provider Internal Medicine; Emergency Provider Emergency Medicine; PCP Nurse Practitioner Family; Referring Provider Emergency Medicine; Visit Provider Internal Medicine
DX: I21.4 Non-ST elevation (NSTEMI) myocardial infarction (principal); J96.01 Acute respiratory failure with hypoxia; N17.9 Acute kidney failure, unspecified; G93.41 Metabolic encephalopathy; E87.5 Hyperkalemia; F15.10 Other stimulant abuse, uncomplicated; K72.00 Acute and subacute hepatic failure without coma; E87.2 Acidosis; I50.21 Acute systolic (congestive) heart failure; F17.200 Nicotine dependence, unspecified, uncomplicated; Z20.822 Contact with and (suspected) exposure to COVID-19
CPT/HCPCS: 36415; 36592; 36600; 70450; 71045; 76700; 80048; 80053; 80076; 80305; 80329; 81001; 82550; 82805; 83605; 83615; 83690; 83735; 83880; 84443; 84484; 85007; 85025; 85379; 86704; 86706; 86708; 87040; 87150; 87205; 87340; 87522; 87635; 87797; 93005; 93010; 93306; 93976; 94640; 94660; 96361; 96365; 96374; 96376; 99285; 99291; 99406; C9803; G0480; J1630; J1642; J1644; J1650; J1940; J2310; J2930; J3490